=== PATIENT | female | born 1975 | race Hispanic/Latino ===

== ENCOUNTER 2018-03-03 09:19 | Emergency (ER) | payer BC ==
--- OUTSIDE RECORDS SUMMARY | 2018-03-03 09:22 | XMS REPORT ---
:1975 Author Organization [employer] Care Team Providers Name Role Phone Au, Na Provider Role Unavailable Allergies, Adverse Reactions, Alerts Substance Reaction Event Type Rocephin Info Not Available Drug Allergy Problems Problem Type Condition Code Onset Dates Condition Status Problem Elevated blood pressure reading R03.0 Active without diagnosis of hypertension Problem Prediabetes R73.03 Active Problem Allergic rhinitis J30.9 Active Problem Upper respiratory tract infection, J06.9 Active unspecified type Problem Encounter for screening mammogram Z12.31 Active for breast cancer Problem Cough R05 Active Problem Pelvic pain R10.2 Active Problem Increased urinary frequency R35.0 Active Problem Encounter for gynecological Z01.419 Active examination without abnormal finding Problem Well woman exam with routine Z01.419 Active gynecological exam Assessment Vitamin D deficiency E55.9 Active Assessment Prediabetes R73.03 Active Assessment Seasonal allergic rhinitis, J30.2 Active unspecified trigger Problem Fatigue R53.83 Active Problem Vitamin D deficiency E55.9 Active Assessment Migraine, unspecified, not G43.901 Active intractable, with status migrainosus Problem Migraine, unspecified, not G43.901 Active intractable, with status migrainosus Problem Morbid (severe) obesity due to E66.01 Active excess calories Medications Medication Code Code Instructions Start End Status Dosage System Date Date Omeprazole [facility] 17066908399 20 MG Orally Active 1 capsule Once a day Lisinopril [facility] 55655537629 5 MG Active 1 EACH ONCE A DAY ORALLY Tradjenta ND 13494928765 5 MG Orally Once Active 1 tablet a day Imitrex ND 48459360516 25 MG Orally November 22, Active 1 tablet twice a day 2017 as needed Potassium ND 55500118125 20 MEQ Orally Active 1 tablet Chloride Once a day with food Results No Known Results Summary Purpose [employer] Submission
--- OUTSIDE RECORDS SUMMARY | 2018-03-03 09:22 | XMS REPORT ---
:1975 Author Organization [employer] Care Team Providers Name Role Phone Bashir Castellanos Provider Role Unavailable Allergies, Adverse Reactions, Alerts Substance Reaction Event Type Rocephin Info Not Available Drug Allergy Problems Problem Type Condition Code Onset Dates Condition Status Problem Elevated blood pressure reading R03.0 Active without diagnosis of hypertension Problem Morbid (severe) obesity due to E66.01 Active excess calories Problem Migraine, unspecified, not G43.901 Active intractable, with status migrainosus Problem Well woman exam with routine Z01.419 Active gynecological exam Problem Encounter for screening mammogram Z12.31 Active for breast cancer Problem Pelvic pain R10.2 Active Problem Prediabetes R73.03 Active Problem Allergic rhinitis J30.9 Active Problem Encounter for gynecological Z01.419 Active examination without abnormal finding Problem Increased urinary frequency R35.0 Active Assessment Morbid (severe) obesity due to E66.01 Active excess calories Assessment Encounter for gynecological Z01.419 Active examination without abnormal finding Assessment Well woman exam with routine Z01.419 Active gynecological exam Assessment Pelvic pain R10.2 Active Problem Fatigue R53.83 Active Assessment Encounter for screening mammogram Z12.31 Active for breast cancer Problem Vitamin D deficiency E55.9 Active Medications Medication Code Code Instructions Start End Status Dosage System Date Date Lisinopril [facility] 96873250823 5 MG Orally Once Active 1 tablet a day Tradjenta ND 08804914557 5 MG Orally Once Active 1 tablet a day Potassium ND 79159625690 20 MEQ Orally Active 1 tablet Chloride Once a day with food Omeprazole ND 91389047049 20 MG Orally Active 1 capsule Once a day Results Name Result Date Reference Range Unit Abnormality Flag URINALYSIS AUTO W/O SCOPE (88730) ----NIT Neg [id number] ----URO 0.2 [id number] ----PROTEIN Neg [id number] ----pH 6.5 20170830 ----BLO Neg [id number] ----GLUCOSE Neg [id number] ----GARCIA Neg [id number] ----BILIRUBIN Neg [id number] ----KETONES Neg [id number] ----SPECIFIC GRAVITY 1.020 20170830 Summary Purpose eClinicalWorks Submission
--- OUTSIDE RECORDS SUMMARY | 2018-03-03 09:22 | XMS REPORT ---
:1975 Author Organization [employer] Care Team Providers Name Role Phone Roe, Na Provider Role Unavailable Allergies, Adverse Reactions, Alerts Substance Reaction Event Type Rocephin Info Not Available Drug Allergy Problems Problem Type Condition Code Onset Dates Condition Status Problem Prediabetes R73.03 Active Problem Encounter for gynecological Z01.419 Active examination without abnormal finding Problem Pelvic pain R10.2 Active Problem Alkaline phosphatase elevation R74.8 Active Assessment Abscess L02.91 Active Problem Seasonal allergic rhinitis, J30.2 Active unspecified trigger Assessment Vitamin D deficiency E55.9 Active Assessment Seasonal allergic rhinitis, J30.2 Active unspecified trigger Problem Abscess L02.91 Active Problem Well woman exam with routine Z01.419 Active gynecological exam Problem Encounter for screening mammogram Z12.31 Active for breast cancer Problem Upper respiratory tract infection, J06.9 Active unspecified type Problem Cough R05 Active Problem Elevated blood pressure reading R03.0 Active without diagnosis of hypertension Assessment Prediabetes R73.03 Active Assessment Migraine, unspecified, not G43.901 Active intractable, with status migrainosus Problem Vitamin D deficiency E55.9 Active Problem Migraine, unspecified, not G43.901 Active intractable, with status migrainosus Problem Allergic rhinitis J30.9 Active Problem Morbid (severe) obesity due to E66.01 Active excess calories Assessment Alkaline phosphatase elevation R74.8 Active Problem Fatigue R53.83 Active Problem Increased urinary frequency R35.0 Active Medications Medication Code Code Instructions Start End Status Dosage System Date Date Bactrim DS ND 69371293777 800-160 MG Dec 23, Active 1 tablet Orally Twice a 2018 day Imitrex ND 44130903236 25 MG Orally Active 1 tablet twice a day as needed Lisinopril ND 39244432628 5 MG Active 1 EACH ONCE A DAY ORALLY Potassium ND 91322564777 20 MEQ Orally Active 1 tablet Chloride Once a day with food Tradjenta ND 02631367728 5 MG Orally Once Active 1 tablet a day Omeprazole ND 45903431282 20 MG Orally Active 1 capsule Once a day Results No Known Results Summary Purpose eClinicalWorks Submission
--- OUTSIDE RECORDS SUMMARY | 2018-03-03 09:22 | XMS REPORT ---
[...] with routine Z01.419 Active gynecological exam Problem Fatigue R53.83 Active Problem Vitamin D deficiency E55.9 Active Assessment Cough R05 Active Problem Migraine, unspecified, not G43.901 Active intractable, with status migrainosus Assessment Upper respiratory tract infection, J06.9 Active unspecified type Problem Morbid (severe) obesity due to E66.01 Active excess calories Medications Medication Code Code Instructions Start End Status Dosage System Date Date Cheratussin AC [facility] 88033236737 100-10 MG/5ML October 11October Active 5 ml to Orally at hs prn 2017 19, 10ml cough 2017 Tradjenta ND 00395409547 5 MG Orally Once Active 1 tablet a day Lisinopril ND 80284666505 5 MG Orally Once Active 1 tablet a day Omeprazole ND 67035754739 20 MG Orally Active 1 capsule Once a day Potassium ND 93895736901 20 MEQ Orally Active 1 tablet Chloride Once a day with food Zithromax [facility]-[place] ND 92508994107 250 MG Orally October 11September Active 2 tablets Once a day 2018 24, on the 2018 first day, then 1 tablet daily for 4 days Results No Known Results Summary Purpose eClinicalWorks Submission
--- OUTSIDE RECORDS SUMMARY | 2018-03-03 09:22 | XMS REPORT ---
[...] Problem Increased urinary frequency R35.0 Active Assessment Hyponatremia E87.1 Active Assessment Increased urinary frequency R35.0 Active Assessment Low vitamin D level R79.89 Active Assessment Allergic rhinitis J30.9 Active Assessment Migraine, unspecified, not G43.901 Active intractable, with status migrainosus Assessment Prediabetes R73.03 Active Problem Fatigue R53.83 Active Assessment Fatigue R53.83 Active Problem Vitamin D deficiency E55.9 Active Medications Medication Code Code Instructions Start End Status Dosage System Date Date Omeprazole ND 84907020519 20 MG Orally Active 1 capsule Once a day Lisinopril ND 22436936672 5 MG Orally Once Active 1 tablet a day Imitrex ND 29889699421 50 MG Orally August 30, Active 1 tablet daily 2017 as needed and may repeat one dose in 2 hours ( max of 200mg daily) Metformin HCl ND 96595795191 500 MG Orally August 30, Active 1 tablet Once a day 2017 with a meal Potassium ND 41922053401 20 MEQ Orally Active 1 tablet Chloride Once a day with food Tradjenta ND 01408932608 5 MG Orally Once Active 1 tablet a day Montelukast ND 95300274671 10 MG Orally Active 1 tablet Sodium Once a day in the evening Results No Known Results Summary Purpose eClinicalWorks Submission
[2018-03-03 10:28] LABS: Absolute Lymphocytes (CBC) 4.3 K/uL (0.7-4.9); Absolute Monocytes 0.8 K/uL (0.1-1.3); Absolute Neutrophil 6.6 K/uL (1.8-8.0); Basophils % 0.6 % (0-1.3); Eosinophils % 1.2 % (0-4.4); Hematocrit 44.1 % (36.0-45.0); Lymphocytes % 36.2 % (15.3-44.8); MCH 28.2 pg (27.0-35.0); MCV 84.4 fL (80-100); MPV 9.7 fL (7.6-11.3); Monocytes % 6.4 % (3.3-12.3); RBC Red Blood Cell Count 5.23 M/uL (3.86-4.86)
[2018-03-03 10:34] LABS: Protime INR 1.03
--- NOTE | 2018-03-03 10:34 | RAD REPORT ---
EXAM DESCRIPTION: CT - Ct Stroke Brain Wo Cont - 03/03/2018 10:25 am CLINICAL HISTORY: Blurred vision and dizziness COMPARISON: None. TECHNIQUE: Computed axial tomography of the head was obtained. IV contrast was not requested. All CT scans are performed using dose optimization technique as appropriate and may include automated exposure control or mA/KV adjustment according to patient size. FINDINGS: An intracranial bleed is not seen . The ventricles are normal in caliber. No extra-axial fluid collection is noted. Fluid within the sinuses/ mastoids is not seen. IMPRESSION: No acute intracranial abnormality is seen. If patient's symptoms persist MRI of the bra in would be recommended. Exam discussed with Javier in the Emergency Room 10:27 a.m. March 03, 2018
[2018-03-03 10:51] LABS: ALT/SGPT 35 U/L (12-78); AST/SGOT 23 U/L (15-37); Albumin 3.9 g/dL (3.4-5.0); Alkaline Phosphatase 165 U/L (45-117); BUN Blood Urea Nitrogen 8 mg/dL (7-18); Bicarbonate 29 mmol/L (21-32); Bilirubin Direct < 0.1 mg/dL (0-0.2); Bilirubin Total 0.5 mg/dL (0.2-1.0); Glucose Level 101 mg/dL (74-106); Lipase 158 U/L (73-393); Magnesium 2.3 mg/dL (1.8-2.4); Potassium 3.5 mmol/L (3.5-5.1); Protein, Total 8.7 g/dL (6.4-8.2); Sodium Level 135 mmol/L (136-145); Troponin (Emerg Dept Use Only) < 0.02 ng/mL (0.0-0.045)
[2018-03-03] MEDS ORDERED: ONDANSETRON 4 MG/2 ML VIAL ONE (10:51)
[2018-03-03 10:58] LABS: Urine Blood NEGATIVE (NEG); Urine Glucose NEGATIVE (NEG); Urine Protein 1+ (NEG); Urine Specific Gravity 1.025 (1.005-1.030)
--- NOTE | 2018-03-03 11:35 | RAD REPORT ---
EXAM DESCRIPTION: Thomas Single View03/03/2018 10:37 am CLINICAL HISTORY: Chest pain COMPARISON: 2014 FINDINGS: The lungs appear clear of acute infiltrate. The heart is borderline enlarged IMPRESSION: No acute abnormalities displayed
[2018-03-03] MEDS ORDERED: ACETAMINOPHEN 325 MG TABLET ONE (12:00)
--- NOTE | 2018-03-03 12:21 | RAD REPORT ---
EXAM DESCRIPTION: US - CP - 03/03/2018 11:59 am CLINICAL HISTORY: Dizziness, syncope COMPARISON: None. TECHNIQUE: Real-time sonographic evaluation of both carotid systems was performed. Epstein scale and Do ppler interrogation were performed with waveform tracing bilaterally. FINDINGS: Normal high resistance waveforms are noted in both external carotid arteries. The common c arotid arteries and internal carotid arteries show normal low resistance waveforms. No significant plaque formation is seen. Peak systolic and end diastolic velocity values and the ICA/ CCA ratios are in the non-hemodynamically significant range. Antegrade flow seen in both vertebral arteries. Velocity values and ratios were recorded and are retained in the patient's imaging records. A few small benign appearing cervical lymph nodes seen. IMPRESSION: No significant atherosclerotic changes noted. No evidence of a hemodynamically significant stenosis.
--- NOTE | 2018-03-03 13:36 | RAD REPORT ---
EXAM DESCRIPTION: MRI - Brain W/Wo Cont - 03/03/2018 1:03 pm CLINICAL HISTORY: Blurred vision and numbness COMPARISON: March 03, [address] TECHNIQUE: Axial, sagittal, and coronal magnetic resonance images of the brain were obtained. 20 cc MultiHance administered intravenously FINDINGS: No abnormal signal is present within the brain. Diffusion-weighted/ADC mapping does not reveal evidence of acute infarction. The ventricles are normal caliber. An extra-axial fluid collection is not present. No abnormal enhancement displayed The sinuses and mastoids are clear. IMPRESSION: Unremarkable exam
--- NOTE | 2018-03-03 13:37 | RAD REPORT ---
EXAM DESCRIPTION: MRI - MRA Head Wo Cont - 03/03/2018 1:03 pm CLINICAL HISTORY: Blurred vision and numbness COMPARISON: None. TECHNIQUE: Magnetic resonance angiogram of the head was performed. 3D MIPS reconstruction performed FINDINGS: The visualized anterior cerebral, middle cerebral, posterior cerebral, basilar and distal internal carotid arteries do not demonstrate a significant stenosis. An aneurysm is not seen IMPRESSION: Unremarkable MRA head
--- NOTE | 2018-03-03 13:39 | RAD REPORT ---
EXAM DESCRIPTION: MRI - MRA Neck W/Wo Cont - 03/03/2018 1:02 pm CLINICAL HISTORY: Blurred vision and numbness COMPARISON: None. TECHNIQUE: Magnetic resonance angiogram of the neck was performed. 20 cc MultiHance administered int ravenously. . 3D MIPS reconstruction performed. FINDINGS: The common carotid, internal carotid and external carotid arteries do not demonstrate a si gnificant stenosis. An aneurysm is not seen. Bovine aorta The left vertebral artery is little bit more dominant than the right. No abnormality displayed. IMPRESSION: No significant abnormality is seen
--- NOTE | 2018-03-03 15:27 | EDPHYS ---
Physician Documentation [facility] Unit Name: Kimmie Allen Age: 42 yrs Sex: Female : 1975 Arrival Date: 03/03/2018 Time: 09:24 Bed 17 Private MD: April Au ED Physician Telly Borrego HPI: 03/03 10:20 This 42 yrs old Female presents to ER via Ambulatory with complaints of pm1 Dizziness, Blurred Vision. 10:20 The patient presents with dizziness. Onset: The symptoms/episode began/occurred this pm1 morning, at 08:00. Context: occurred at work, occurred while the patient was working, just prior to the episode the patient experienced no apparent symptoms. Modifying factors: The symptoms are alleviated by nothing, the symptoms are aggravated by nothing. Associated signs and symptoms: Pertinent positives: blurred vision, Pertinent negatives: chest pain, nausea, numbness, shortness of breath, tingling. Severity of symptoms: in the emergency department the symptoms have resolved. Patient's baseline: Neuro: alert and fully oriented, Motor: no deficits, Ambulation: walks without assistance, Speech: normal. The patient has not experienced similar symptoms in the past. The patient has not recently seen a physician, the patient's primary care provider is Dr. Au. patient at work and had an episode of blurry vision to the medial portion of both eyes with the peripheral portions normal. Blurry vision has resolved and patient attributes dizziness to blurred vision. No focal weakness present. . 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 - Social history:: Smoking status: Patient/guardian denies using tobacco. - Ebola Screening: : Patient negative for fever greater than or equal to 101.5 degrees Fahrenheit, and additional compatible Ebola Virus Disease symptoms Patient denies exposure to infectious person Patient denies travel to an Ebola-affected area in the 21 days before illness onset No symptoms or risks identified at this time. ROS: 10:20 Constitutional: Negative for fever, chills, and weight loss, ENT: Negative for injury, pm1 pain, and discharge. 10:20 Neck: Negative for injury, pain, and swelling, Cardiovascular: Negative for chest pain, palpitations, and edema, Respiratory: Negative for shortness of breath, cough, wheezing, and pleuritic chest pain, Abdomen/GI: Negative for abdominal pain, nausea, vomiting, diarrhea, and constipation, Back: Negative for injury and pain, : Negative for injury, bleeding, discharge, and swelling, MS/Extremity: Negative for injury and deformity, Skin: Negative for injury, rash, and discoloration. 10:20 Eyes: Positive for blurry vision, Negative for discharge, pain, vision loss. 10:20 Neuro: Positive for dizziness, Negative for altered mental status, numbness, tingling, weakness. Exam: 10:20 Constitutional: This is a well developed, well nourished patient who is awake, alert, pm1 and in no acute distress. Head/Face: Normocephalic, atraumatic. Eyes: Pupils equal round and reactive to light, extra-ocular motions intact. Lids and lashes normal. Conjunctiva and sclera are non-icteric and not injected. Cornea within normal limits. Periorbital areas with no swelling, redness, or edema. ENT: Nares patent. No nasal discharge, no septal abnormalities noted. Tympanic membranes are normal and external auditory canals are clear. Oropharynx with no redness, swelling, or masses, exudates, or evidence of obstruction, uvula midline. Mucous membranes moist. Neck: Trachea midline, no thyromegaly or masses palpated, and no cervical lymphadenopathy. Supple, full range of motion without nuchal rigidity, or vertebral point tenderness. No Meningismus. Chest/axilla: Normal chest wall appearance and motion. Nontender with no deformity. No lesions are appreciated. Cardiovascular: Regular rate and rhythm with a normal S1 and S2. No gallops, murmurs, or rubs. Normal PMI, no JVD. No pulse deficits. Respiratory: Lungs have equal breath sounds bilaterally, clear to auscultation and percussion. No rales, rhonchi or wheezes noted. No increased work of breathing, no retractions or nasal flaring. Abdomen/GI: Soft, non-tender, with normal bowel sounds. No distension or tympany. No guarding or rebound. No evidence of tenderness throughout. Back: No spinal tenderness. No costovertebral tenderness. Full range of motion. Skin: Warm, dry with normal turgor. Normal color with no rashes, no lesions, and no evidence of cellulitis. MS/ Extremity: Pulses equal, no cyanosis. Neurovascular intact. Full, normal range of motion. 10:20 Neuro: Orientation: is normal, Mentation: is normal, Cranial nerves: CN II- XII are normal as tested, Cerebellar function: normal finger to nose testing, heel to paula testing is normal, Motor: moves all fours, strength is normal, strength is 5/5 in all extremities, Sensation: is normal, no obvious gross deficits, Gait: is steady, at a normal pace, without difficulty, Abnormal movements: there are no abnormal movements. Vital Signs: 09:53 BP 136 / 81; Pulse 78; Resp 16; Temp 98.1; Pulse Ox 98% on R/A; Weight 106.59 kg; aj Height 5 ft. 1 in. (154.94 cm); Pain 5/10; 11:04 BP 105 / 67; Pulse 73; Resp 16; Pulse Ox 99% on R/A; Pain 6/10; em 12:00 BP 118 / 71; Pulse 68; Resp 18; Pulse Ox 99% on R/A; em 13:00 BP 133 / 80; Pulse 64; Resp 18; Pulse Ox 99% on R/A; Pain 2/10; em 14:00 BP 91 / 55; Pulse 67; Resp 15; Pulse Ox 98% on R/A; mh5 15:24 BP 104 / 72; Pulse 67; Resp 17; Pulse Ox 99% on R/A; mh5 09:53 Body Mass Index 44.40 (106.59 kg, 154.94 cm) NIH Stroke Scale Scores: 10:10 NIHSS Score: 0 em 10:15 NIHSS Score: 0 pm1 MDM: 10:04 Patient medically screened. pm1 10:20 ED course: Patient not a candidate for TPA because NIHSS = 0 and patient is currently pm1 without any symptoms. 10:27 Data reviewed: vital signs. Data interpreted: Pulse oximetry: on room air is 98 %. pm1 Interpretation: normal. 15:25 Counseling: I had a detailed discussion with the patient and/or guardian regarding: the pm1 historical points, exam findings, and any diagnostic results supporting the discharge/admit diagnosis, lab results, radiology results, the need for outpatient follow up, to return to the emergency department if symptoms worsen or persist or if there are any questions or concerns that arise at home. 03/03 10:14 Order name: Magnesium; Complete Time: 11:05 pm1 03/03 10:14 Order name: Lipase; Complete Time: 11: pm1 03/03 10:14 Order name: Hepatic Function; Complete Time: 11:05 pm1 03/03 10:14 Order name: Troponin (emerg Dept Use Only); Complete Time: 11:05 pm1 03/03 10:14 Order name: Basic Metabolic Panel; Complete Time: 11:05 pm1 03/03 10:14 Order name: CBC with Diff; Complete Time: 10:29 pm1 03/03 10:14 Order name: Protime (+inr); Complete Time: 11: pm1 03/03 10:14 Order name: Ptt, Activated; Complete Time: 11:05 pm1 03/03 10:14 Order name: CT Stroke Brain w/o Contrast; Complete Time: 11:05 pm1 03/03 10:14 Order name: Stroke CXR 1 View; Complete Time: 12:13 pm1 03/03 10:22 Order name: Urine Dipstick--Ancillary (enter results); Complete Time: 11:05 eb 03/03 10:22 Order name: Urine --Ancillary (enter results); Complete Time: 11:05 eb 03/03 10:43 Order name: Carotid Artery Bilateral US; Complete Time: 12:24 pm1 03/03 10:14 Order name: EKG; Complete Time: 10:14 pm1 03/03 10:14 Order name: Accucheck; Complete Time: 10:20 pm1 03/03 10:14 Order name: Cardiac monitoring; Complete Time: 10:20 pm1 03/03 10:14 Order name: EKG - Nurse/Tech; Complete Time: 10:20 pm1 03/03 10:14 Order name: IV Saline Lock; Complete Time: 10:20 pm1 03/03 10:14 Order name: Labs collected and sent; Complete Time: 10:20 pm1 03/03 10:14 Order name: NPO; Complete Time: 10:20 pm1 03/03 10:14 Order name: O2 Per Protocol; Complete Time: 10:21 pm1 03/03 10:14 Order name: O2 Sat Monitoring; Complete Time: 10:21 pm1 03/03 10:14 Order name: Stroke Swallow Screen; Complete Time: 10:58 pm1 03/03 12:24 Order name: MRA Head Wo Cont; Complete Time: 13:38 EDMS 03/03 12:25 Order name: Brain W/Wo Cont; Complete Time: 13:38 EDMS 03/03 12:25 Order name: MRA Neck W/Wo Cont; Complete Time: 14:00 EDMS Administered Medications: 10:42 Drug: Zofran 4 mg Route: IVP; Site: left antecubital; ss 11:30 Follow up: Response: No adverse reaction; Nausea is decreased em 11:50 Drug: Tylenol 650 mg Route: PO; em 13:52 Follow up: Response: No adverse reaction; Pain is decreased em Point of Care Testing: Blood Glucose: 10:21 Blood Glucose: 90 mg/dL; em Ranges: Critical Glucose Levels:Adult <50 mg/dl or >400 mg/dl <40 mg/dl or >180 mg/dl Disposition: 03/03/18 15:26 Discharged to Home. Impression: Dizziness and giddiness. - Condition is Stable. - Discharge Instructions: Dizziness. - Work release form, Medication Reconciliation Form, Thank You Letter, Antibiotic Education, Prescription Opioid Use form. - Follow up: Emergency Department; When: As needed; Reason: Worsening of condition. Follow up: April Au MD; When: 2 - 3 days; Reason: Recheck today's complaints, Continuance of care, Re-evaluation by your physician. - Problem is new. - Symptoms have improved. NIH Stroke Scale - NIH Stroke Score Date: 03/03/2018 Time: 10:10 Total Score = 0 1a. Level of Consciousness (LOC) - 0(Alert) 1b. Level of Consciousness (LOC) (Year \T\ Age) - 0(Both) 1c. LOC Commands (Open \T\ Closes Eyes/Road Cleaner) - 0(Both) 2. Best Gaze (Lateral Gaze Paresis) - 0(Normal) 3. Visual Field Loss - 0(No visual loss) 4. Facial Palsy - 0(Normal) 5a. Left Arm: Motor (10-second hold) - 0(No drift) 5b. Right Arm: Motor (10-second hold) - 0(No drift) 6a. Left Leg: Motor (5-second hold - always test supine) - 0(No drift) 6b. Right Leg: Motor (5-second hold - always test supine) - 0(No drift) 7. Limb Ataxia (finger/nose \T\ heel/paula - test with eyes open) - 0(Absent) 8. Sensory Loss (pinprick arms/legs/face) - 0(Normal) 9. Best Language: Aphasia (description/naming/reading) - 0(No aphasia) 10. Dysarthria (speech clarity - read or repeat words) - 0(Normal) 11. Extinction and Inattention (visual/tactile/auditory/spatial/personal) - 0(No abnormality) Initials: NIH Stroke Scale - NIH Stroke Score Date: 03/03/2018 Time: 10:15 Total Score = 0 1a. Level of Consciousness (LOC) - 0(Alert) 1b. Level of Consciousness (LOC) (Year \T\ Age) - 0(Both) 1c. LOC Commands (Open \T\ Closes Eyes/Road Cleaner) - 0(Both) 2. Best Gaze (Lateral Gaze Paresis) - 0(Normal) 3. Visual Field Loss - 0(No visual loss) 4. Facial Palsy - 0(Normal) 5a. Left Arm: Motor (10-second hold) - 0(No drift) 5b. Right Arm: Motor (10-second hold) - 0(No drift) 6a. Left Leg: Motor (5-second hold - always test supine) - 0(No drift) 6b. Right Leg: Motor (5-second hold - always test supine) - 0(No drift) 7. Limb Ataxia (finger/nose \T\ heel/paula - test with eyes open) - 0(Absent) 8. Sensory Loss (pinprick arms/legs/face) - 0(Normal) 9. Best Language: Aphasia (description/naming/reading) - 0(No aphasia) 10. Dysarthria (speech clarity - read or repeat words) - 0(Normal) 11. Extinction and Inattention (visual/tactile/auditory/spatial/personal) - 0(No abnormality) Initials: pm1 Addendum: 03/06/2018 06:47 Co-signature as Attending Physician, Telly Borrego MD I agree with the [facility] assessment and plan of care. Signatures: Dispatcher [employer] EDID Carolyn Sagastume, RN Telly Mandujano MD MD cha Munoz, Jax, APPRENTICE FUNERAL DIRECTOR APPRENTICE FUNERAL DIRECTOR em Isabelle Willis RN RN ss Marinas, Patrick, BOOK SHELVER BOOK SHELVER pm1 Corrections: (The following items were deleted from the chart) 03/03 12:24 10:36 Stroke Protocol ordered. [facility] 16:06 15:26 03/03/2018 15:26 Discharged to Home. Impression: Dizziness and giddiness. em Condition is Stable. Forms are Work release form, Medication Reconciliation Form, Thank You Letter, Antibiotic Education, Prescription Opioid Use. Follow up: Emergency Department; When: As needed; Reason: Worsening of condition. Follow up: April Au; When: 2 - 3 days; Reason: Recheck today's complaints, Continuance of care, Re-evaluation by your physician. Problem is new. Symptoms have improved. pm1
--- NOTE | 2018-03-03 15:27 | ER ---
Nurse's Notes [facility] Name: Kimmie Allen Age: 42 yrs Sex: Female : 1975 Arrival Date: 03/03/2018 Time: 09:24 Bed 17 Private MD: April Au Diagnosis: Dizziness and giddiness Presentation: 03/03 09:51 Presenting complaint: Patient states: Reports episode of blurred vision, headache, aj indigestion, and left shoulder pain that started at 0800 this AM after eating breakfast. Reports blurred vision has improved. Transition of care: patient was not received from another setting of care. Onset of symptoms was March 03, 2018 at 08:00. Risk Assessment: Do you want to hurt yourself or someone else? Patient reports no desire to harm self or others. Initial Sepsis Screen: Does the patient meet any 2 criteria? No. Patient's initial sepsis screen is negative. Does the patient have a suspected source of infection? No. Patient's initial sepsis screen is negative. Care prior to arrival: None. 09:51 Method Of Arrival: Ambulatory 09:51 Acuity: JOSHUA 3 aj 10:15 No acute neurological deficit is noted. Pre-hospital glucose is not applicable to this em patient. Triage Assessment: 09:53 General: Appears in no apparent distress. comfortable, obese, Behavior is calm, aj cooperative, appropriate for age. Pain: Complains of pain in face, scalp and left bicep. Neuro: Level of Consciousness is awake, alert, obeys commands, Oriented to person, place, time, situation, Appropriate for age Pulp Roller are equal bilaterally Moves all extremities. Full function Gait is steady, Speech is normal, Facial symmetry appears normal, Reports dizziness, headache. Respiratory: Airway is patent Respiratory effort is even, unlabored, Respiratory pattern is regular, symmetrical. Derm: Skin is intact, is healthy with good turgor, Skin is pink, warm \T\ dry. normal. 10:15 The onset of the patients symptoms was March 03, 2018 at 08:00. 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: 09:53 LMP 02/06/2018 aj Stroke Activation: Physician: Stroke Attending; Name: ; Notified At: ; Arrived At: Physician: Chief Stroke Resident; Name: ; Notified At: ; Arrived At: Physician: Stroke Resident; Name: ; Notified At: ; Arrived At: Physician: ED Attending; Name: Elmo; Notified At: 10:15; Arrived At: Physician: ED Resident; Name: ; Notified At: ; Arrived At: Historical: - Allergies: :53 Rocephin; aj - Home Meds: :53 Deonna 180 mg Oral tab 1 tab once daily [Active]; Lisinopril Oral [Active]; Omeprazole aj Oral [Active]; - PMHx: 09:53 Diabetes - NIDDM; Hypertension; GERD; aj - PSHx: 09:53 Tubal ligation; aj - Immunization history:: Adult Immunizations up to date. - Social history:: Smoking status: Patient/guardian denies using tobacco. - Ebola Screening: : Patient negative for fever greater than or equal to 101.5 degrees Fahrenheit, and additional compatible Ebola Virus Disease symptoms Patient denies exposure to infectious person Patient denies travel to an Ebola-affected area in the 21 days before illness onset No symptoms or risks identified at this time. Screenin:10 Abuse screen: Denies threats or abuse. Nutritional screening: No deficits noted. em Tuberculosis screening: No symptoms or risk factors identified. Fall Risk Gait- Impaired (20 pts.). Assessment: 10:10 General: Appears in no apparent distress. comfortable, Behavior is calm, cooperative. em Pain: Complains of pain in anterior aspect of left shoulder Pain currently is 5 out of 10 on a pain scale. Neuro: Level of Consciousness is awake, alert, obeys commands, Oriented to person, place, time, situation, Pulp Roller are equal bilaterally Moves all extremities. Gait is unsteady, Speech is normal, Facial symmetry appears normal, Pupils are PERRLA, Intact Reports blurred vision dizziness, headache in right in left. Cardiovascular: Capillary refill < 3 seconds Patient's skin is warm and dry. Respiratory: Airway is patent Respiratory effort is even, unlabored, Respiratory pattern is regular, symmetrical. GI: Reports nausea, Patient currently denies abdominal pain. : Urine is clear. EENT: Oral mucosa is moist. Throat is clear is pink. Derm: Skin is intact, Skin is pink, warm \T\ dry. Musculoskeletal: Range of motion: intact in all extremities. 10:15 General: The previous assessment is accurate, call light remains within reach. ss 10:15 T-PA (Activase) Screening: Contraindications: Rapidly improving condition or minor em deficit: Yes. 10:37 Patient has been NPO before screening. The patient is alert, and able to follow em commands. The patient does not exhibit slurred or garbled speech. The patient is not exhibiting difficulty speaking. The patient does not exhibit difficulty understanding words. The patient is able to swallow own secretions with no drooling or need for suction. Patient tolerated one teaspoon of water. No drooling, immediate coughing, gurgling, or clearing of the throat was noted. The patient tolerated 90mL of water. No drooling, immediate coughing, gurgling, or clearing of the throat was noted. The patient passed the bedside swallow screening. Oral medications may be given as ordered. Contact Physician for further diet orders. Provider notified of bedside swallow screening results: Javier Castellanos CYCLE REPAIRER. 11:04 Reassessment: Patient appears in no apparent distress at this time. Patient and/or em family updated on plan of care and expected duration. Pain level reassessed. Patient is alert, oriented x 3, equal unlabored respirations, skin warm/dry/pink. rates headache 6/10, provider notified Patient states feeling better. Patient states symptoms have improved. 12:25 Reassessment: Patient appears in no apparent distress at this time. pt being wheeled to em CT via wheelchair. 12:58 Reassessment: Patient appears in no apparent distress at this time. Patient and/or em family updated on plan of care and expected duration. Pain level reassessed. Patient is alert, oriented x 3, equal unlabored respirations, skin warm/dry/pink. rates headache 2/10 Patient states feeling better. Patient states symptoms have improved. 13:40 Reassessment: Patient appears in no apparent distress at this time. Patient and/or em family updated on plan of care and expected duration. Pain level reassessed. Patient is alert, oriented x 3, equal unlabored respirations, skin warm/dry/pink. 14:15 Reassessment: Patient appears in no apparent distress at this time. Patient and/or em family updated on plan of care and expected duration. Pain level reassessed. Patient is alert, oriented x 3, equal unlabored respirations, skin warm/dry/pink. rates headache 0/10 Patient denies pain at this time. Patient states feeling better. Patient states symptoms have improved. 15:24 Reassessment: Patient appears in no apparent distress at this time. Patient and/or em family updated on plan of care and expected duration. Pain level reassessed. Patient is alert, oriented x 3, equal unlabored respirations, skin warm/dry/pink. Vital Signs: 09:53 BP 136 / 81; Pulse 78; Resp 16; Temp 98.1; Pulse Ox 98% on R/A; Weight 106.59 kg; aj Height 5 ft. 1 in. (154.94 cm); Pain 5/10; 11:04 BP 105 / 67; Pulse 73; Resp 16; Pulse Ox 99% on R/A; Pain 6/10; em 12:00 BP 118 / 71; Pulse 68; Resp 18; Pulse Ox 99% on R/A; em 13:00 BP 133 / 80; Pulse 64; Resp 18; Pulse Ox 99% on R/A; Pain 2/10; em 14:00 BP 91 / 55; Pulse 67; Resp 15; Pulse Ox 98% on R/A; mh5 15:24 BP 104 / 72; Pulse 67; Resp 17; Pulse Ox 99% on R/A; mh5 09:53 Body Mass Index 44.40 (106.59 kg, 154.94 cm) aj NIH Stroke Scale Scores: 10:10 NIHSS Score: 0 em 10:15 NIHSS Score: 0 pm1 ED Course: 09:24 Patient arrived in ED. mr 09:24 April uA MD is Private Physician. mr 09:53 Triage completed. aj 09:53 Arm band placed on left wrist. Patient placed in an exam room. aj 09:58 Jax Allen LVN is Primary Nurse. em 10:03 Javier Castellanos NP is PHCP. pm1 10:03 Telly Borrego MD is Attending Physician. pm1 10:10 Patient has correct armband on for positive identification. Placed in gown. Bed in low em position. Call light in reach. Adult w/ patient. 10:15 Initial lab(s) drawn, by me, sent to lab. Inserted saline lock: 22 gauge in left em antecubital area, using aseptic technique. Blood collected. 10:26 CT Stroke Brain w/o Contrast In Process Unspecified. EDMS 10:35 X-ray completed. Portable x-ray completed in exam room. Patient tolerated procedure ag1 well. 10:36 Stroke CXR 1 View In Process Unspecified. EDMS 10:46 EKG done, by zoology technical officer. reviewed by Javier Castellanos NP. tc 12:00 Carotid Artery Bilateral US In Process Unspecified. EDMS 12:10 Patient moved to MRI via wheelchair. ka 13:03 MRA Head Wo Cont In Process Unspecified. EDMS 13:03 Brain W/Wo Cont In Process Unspecified. EDMS 13:03 MRA Neck W/Wo Cont In Process Unspecified. EDMS 13:09 MRI completed. Patient tolerated well. Patient moved back from MRI. ka 15:25 April Au MD is Referral Physician. pm1 16:04 No provider procedures requiring assistance completed. IV discontinued, intact, em bleeding controlled, No redness/swelling at site. Pressure dressing applied. Administered Medications: 10:42 Drug: Zofran 4 mg Route: IVP; Site: left antecubital; ss 11:30 Follow up: Response: No adverse reaction; Nausea is decreased em 11:50 Drug: Tylenol 650 mg Route: PO; em 13:52 Follow up: Response: No adverse reaction; Pain is decreased em Point of Care Testing: Blood Glucose: 10:21 Blood Glucose: 90 mg/dL; em Ranges: Outcome: 15:26 Discharge ordered by MD. pm1 16:04 Discharged to home ambulatory, with family. em 16:04 Condition: good 16:04 Discharge instructions given to patient, family, Instructed on discharge instructions, follow up and referral plans. Demonstrated understanding of instructions, follow-up care. 16:06 Patient left the ED. em NIH Stroke Scale - NIH Stroke Score Date: 03/03/2018 Time: 10:10 Total Score = 0 1a. Level of Consciousness (LOC) - 0(Alert) 1b. Level of Consciousness (LOC) (Year \T\ Age) - 0(Both) 1c. LOC Commands (Open \T\ Closes Eyes/Crm Solution Architect) - 0(Both) 2. Best Gaze (Lateral Gaze Paresis) - 0(Normal) 3. Visual Field Loss - 0(No visual loss) 4. Facial Palsy - 0(Normal) 5a. Left Arm: Motor (10-second hold) - 0(No drift) 5b. Right Arm: Motor (10-second hold) - 0(No drift) 6a. Left Leg: Motor (5-second hold - always test supine) - 0(No drift) 6b. Right Leg: Motor (5-second hold - always test supine) - 0(No drift) 7. Limb Ataxia (finger/nose \T\ heel/paula - test with eyes open) - 0(Absent) 8. Sensory Loss (pinprick arms/legs/face) - 0(Normal) 9. Best Language: Aphasia (description/naming/reading) - 0(No aphasia) 10. Dysarthria (speech clarity - read or repeat words) - 0(Normal) 11. Extinction and Inattention (visual/tactile/auditory/spatial/personal) - 0(No abnormality) Initials: NIH Stroke Scale - NIH Stroke Score Date: 03/03/2018 Time: 10:15 Total Score = 0 1a. Level of Consciousness (LOC) - 0(Alert) 1b. Level of Consciousness (LOC) (Year \T\ Age) - 0(Both) 1c. LOC Commands (Open \T\ Closes Eyes/Crm Solution Architect) - 0(Both) 2. Best Gaze (Lateral Gaze Paresis) - 0(Normal) 3. Visual Field Loss - 0(No visual loss) 4. Facial Palsy - 0(Normal) 5a. Left Arm: Motor (10-second hold) - 0(No drift) 5b. Right Arm: Motor (10-second hold) - 0(No drift) 6a. Left Leg: Motor (5-second hold - always test supine) - 0(No drift) 6b. Right Leg: Motor (5-second hold - always test supine) - 0(No drift) 7. Limb Ataxia (finger/nose \T\ heel/paula - test with eyes open) - 0(Absent) 8. Sensory Loss (pinprick arms/legs/face) - 0(Normal) 9. Best Language: Aphasia (description/naming/reading) - 0(No aphasia) 10. Dysarthria (speech clarity - read or repeat words) - 0(Normal) 11. Extinction and Inattention (visual/tactile/auditory/spatial/personal) - 0(No abnormality) Initials: pm1 Signatures: Dispatcher [employer] Carolyn Conway RN RN aj Rivera, Mary mr Jax Allen, CLAIM APPROVER CLAIM APPROVER Isabelle Doe RN RN ss Susie Martini, quality systems technician EKG Ttc Ric, Makenzie ag1 Etelvina Kahn Patrick, CYCLE REPAIRER CYCLE REPAIRER pm1 [place] [facility]
--- NOTE | 2018-03-03 18:47 | EKG ---
Test Date: 2018-03-03 Test Time: 10:32:43 Roving Technician: ELINOR MEASUREMENT RESULTS: Intervals: Rate: 74 NE: 150 QRSD: 78 QT: 426 QTc: 472 [place]: P: 15 NE: 150 QRS: -13 T: 20 INTERPRETIVE STATEMENTS: Normal sinus rhythm Voltage criteria for left ventricular hypertrophy Abnormal ECG Compared to ECG 06/13/2015 09:44:52 No significant changes Electronically Signed On 03-03-18 18:44:55 ATTENDANT CAMPGROUND by Hardeep Uribe
== END 2018-03-03 16:06 | disposition home or self-care (01) ==
LOC: ER 09:19
DX: R42 Dizziness and giddiness (principal); I10 Essential (primary) hypertension; E11.9 Type 2 diabetes mellitus without complications; K21.9 Gastro-esophageal reflux disease without esophagitis; Z88.3 Allergy status to other anti-infective agents
CPT/HCPCS: 36415; 70450; 70544; 70549; 70553; 71045; 80048; 80076; 81003; 81025; 82962; 83690; 83735; 84484; 85025; 85610; 85730; 93005; 93880; 96374; 99284; A9577; J2405

== ENCOUNTER 2018-09-28 15:43 | Emergency (ER) | payer BC ==
--- NOTE | 2018-09-28 16:10 | RAD REPORT ---
EXAM DESCRIPTION: CT - Head Brain Wo Cont - 09/28/2018 4:03 pm CLINICAL HISTORY: right sided headache Headache, drowsiness COMPARISON: <Comparisons> TECHNIQUE: All CT scans are performed using dose optimization technique as appropriate and may inclu de automated exposure control or mA/KV adjustment according to patient size. FINDINGS: No intracranial hemorrhage, hydrocephalus or extra-axial fluid collection.No areas of brai n edema or evidence of midline shift. The paranasal sinuses and mastoids are clear. The calvarium is intact. IMPRESSION: No acute intracranial abnormality.
[2018-09-28] MEDS ORDERED: NA CHLORIDE 0.9% 1,000 ML ONE (16:36)
[2018-09-28] MEDS ORDERED: DIPHENHYDRAMINE 50 MG/ML VIAL ONE (16:36)
[2018-09-28] MEDS ORDERED: METOCLOPRAMIDE 10 MG/2mL INJ ONE (16:36)
--- OUTSIDE RECORDS SUMMARY | 2018-09-28 17:13 | XMS REPORT ---
[...] Status Dosage System Date Date Omeprazole ND 84659016776 20 MG Orally Active 1 capsule Once a day Lisinopril ND 36545987825 5 MG Orally Once Active 1 tablet a day Imitrex ND 95402962809 50 MG Orally August 30, Active 1 tablet daily 2017 as needed and may repeat one dose in 2 hours ( max of 200mg daily) Metformin HCl ND 41407221412 500 MG Orally August 30, Active 1 tablet Once a day 2017 with a meal Potassium ND 94808845192 20 MEQ Orally Active 1 tablet Chloride Once a day with food Tradjenta ND 19892700284 5 MG Orally Once Active 1 tablet a day Montelukast ND 95475763103 10 MG Orally Active 1 tablet Sodium Once a day in the evening Results No Known Results Summary Purpose eClinicalWorks Submission
--- OUTSIDE RECORDS SUMMARY | 2018-09-28 17:13 | XMS REPORT ---
[...] End Status Dosage System Date Date Lisinopril [facility] 39732863076 5 MG Orally Once Active 1 tablet a day Tradjenta ND 82793280228 5 MG Orally Once Active 1 tablet a day Potassium ND 76031365746 20 MEQ Orally Active 1 tablet Chloride Once a day with food Omeprazole ND 28517624805 20 MG Orally Active 1 capsule Once a day Results Name Result Date Reference Range Unit Abnormality Flag URINALYSIS AUTO W/O SCOPE (54184) ----NIT Neg [id number] ----URO 0.2 [id number] ----PROTEIN Neg [id number] ----pH 6.5 20170830 ----BLO Neg [id number] ----GLUCOSE Neg [id number] ----GARCIA Neg [id number] ----BILIRUBIN Neg [id number] ----KETONES Neg [id number] ----SPECIFIC GRAVITY 1.020 [id number] Summary Purpose eClinicalWorks Submission
--- OUTSIDE RECORDS SUMMARY | 2018-09-28 17:13 | XMS REPORT ---
[...] End Status Dosage System Date Date Omeprazole [facility] 92415371741 20 MG Orally Active 1 capsule Once a day Lisinopril [facility] 11295869140 5 MG Active 1 EACH ONCE A DAY ORALLY Tradjenta ND 01620746710 5 MG Orally Once Active 1 tablet a day Imitrex ND 71499221207 25 MG Orally November 22, Active 1 tablet twice a day 2017 as needed Potassium ND 55658992066 20 MEQ Orally Active 1 tablet Chloride Once a day with food Results No Known Results Summary Purpose eClinicalWorks Submission
--- OUTSIDE RECORDS SUMMARY | 2018-09-28 17:13 | XMS REPORT ---
[...] Status Dosage System Date Date Cheratussin AC [facility] 20129824614 100-10 MG/5ML October 11October Active 5 ml to Orally at hs prn 2017 19, 10ml cough 2017 Tradjenta ND 94351504980 5 MG Orally Once Active 1 tablet a day Lisinopril ND 78466117073 5 MG Orally Once Active 1 tablet a day Omeprazole ND 10547547068 20 MG Orally Active 1 capsule Once a day Potassium ND 32840580250 20 MEQ Orally Active 1 tablet Chloride Once a day with food Zithromax Z-[place]ine ND 27764587925 250 MG Orally October 11September Active 2 tablets Once a day 2018 24, on the 2018 first day, then 1 tablet daily for 4 days Results No Known Results Summary Purpose eClinicalWorks Submission
--- OUTSIDE RECORDS SUMMARY | 2018-09-28 17:14 | XMS REPORT ---
:1975 Author Organization eClinicalWorks Care Team Providers Name Role Phone April Au Provider Role Unavailable Allergies, Adverse Reactions, Alerts Substance Reaction Event Type Rocephin Info Not Available Drug Allergy Problems Problem Type Condition Code Onset Dates Condition Status Problem Encounter for gynecological Z01.419 Active examination without abnormal finding Problem Well woman exam with routine Z01.419 Active gynecological exam Problem Pelvic pain R10.2 Active Problem Gastroesophageal reflux disease K21.0 Active with esophagitis Assessment Fever, unspecified fever cause R50.9 Active Problem Alkaline phosphatase elevation R74.8 Active Assessment Pharyngitis, unspecified etiology J02.9 Active Assessment Flu-like symptoms R68.89 Active Problem Constipation, unspecified K59.00 Active constipation type Problem Upper respiratory tract infection, J06.9 Active unspecified type Problem Cough R05 Active Problem Abscess L02.91 Active Problem Seasonal allergic rhinitis, J30.2 Active unspecified trigger Problem Migraine, unspecified, not G43.901 Active intractable, with status migrainosus Problem Morbid (severe) obesity due to E66.01 Active excess calories Problem Elevated blood pressure reading R03.0 Active without diagnosis of hypertension Problem Allergic rhinitis J30.9 Active Problem Increased urinary frequency R35.0 Active Assessment Vitamin D deficiency E55.9 Active Problem Fatigue R53.83 Active Problem Prediabetes R73.03 Active Assessment Body aches R52 Active Problem Vitamin D deficiency E55.9 Active Problem Encounter for screening mammogram Z12.31 Active for breast cancer Medications Medication Code Code Instructions Start End Status Dosage System Date Date Cheratussin AC [facility] 35333839251 100-10 MG/5ML Active 5 ml Orally every 6 hrs Lisinopril [facility] 78135911528 5 Active 1 EACH ONCE A DAY ORALLY Bactrim DS [facility] 25347997599 800-160 MG Active 1 tablet Orally Twice a day Azithromycin ND 18871441740 250 MG Orally June Active 2 tablets Once a day 2018 18, on the 2018 first day, then 1 tablet daily for 4 days [address] [facility] 30893525178 5 MG Active 1 EACH ONCE A DAY ORALLY Omeprazole [facility] 29998982624 20 MG Orally Active 1 capsule Once a day Tradjenta [facility] 03600181088 5 MG Orally Active 1 tablet Once a day Medrol [facility] 55599001688 4 MG Orally June Active as daily [address] [facility] 22870164291 76396 UNIT June Active 1 capsule Orally [address] [facility] 39500618349 25 MG Orally Active 1 tablet twice a day as needed Omeprazole [facility] 37231906074 40 Active 1 EACH DAILY ORALLY Potassium [facility] 00006781560 20 MEQ Orally Active 1 tablet Chloride Once a day with food Results No Known Results Summary Purpose eClinicalWorks Submission
--- OUTSIDE RECORDS SUMMARY | 2018-09-28 17:14 | XMS REPORT ---
[...] Dosage System Date Date Bactrim DS ND 58912375041 800-160 MG Dec 23, Active 1 tablet Orally Twice a 2018 day Imitrex ND 47004565787 25 MG Orally Active 1 tablet twice a day as needed Lisinopril ND 24395729828 5 MG Active 1 EACH ONCE A DAY ORALLY Potassium ND 79193195854 20 MEQ Orally Active 1 tablet Chloride Once a day with food Tradjenta ND 27560006432 5 MG Orally Once Active 1 tablet a day Omeprazole ND 59701631481 20 MG Orally Active 1 capsule Once a day Results No Known Results Summary Purpose eClinicalWorks Submission
--- OUTSIDE RECORDS SUMMARY | 2018-09-28 17:14 | XMS REPORT ---
:1975 Author Organization eClinicalWorks Care Team Providers Name Role Phone Au, Na Provider Role Unavailable Allergies, Adverse Reactions, Alerts Substance Reaction Event Type Rocephin Info Not Available Drug Allergy Problems Problem Type Condition Code Onset Dates Condition Status Assessment Constipation, unspecified K59.00 Active constipation type Assessment Blood tests for routine general Z00.00 Active physical examination Assessment Alkaline phosphatase elevation R74.8 Active Assessment Seasonal allergic rhinitis, J30.2 Active unspecified trigger Problem Prediabetes R73.03 Active Assessment Vitamin D deficiency E55.9 Active Problem Encounter for screening mammogram Z12.31 Active for breast cancer Assessment Prediabetes R73.03 Active Problem Encounter for gynecological Z01.419 Active examination without abnormal finding Problem Well woman exam with routine Z01.419 Active gynecological exam Problem Pelvic pain R10.2 Active Problem Gastroesophageal reflux disease K21.0 Active with esophagitis Problem Alkaline phosphatase elevation R74.8 Active Assessment Migraine, unspecified, not G43.901 Active intractable, with status migrainosus Assessment Gastroesophageal reflux disease K21.0 Active with esophagitis Problem Constipation, unspecified K59.00 Active constipation type Assessment Screening for cardiovascular Z13.6 Active condition Problem Upper respiratory tract infection, J06.9 Active [...] Problem Increased urinary frequency R35.0 Active Problem Fatigue R53.83 Active Problem Vitamin D deficiency E55.9 Active Medications Medication Code Code Instructions Start End Status Dosage System Date Date Tradjenta [facility] 96765585172 5 MG Orally Once Active 1 tablet a day Lisinopril [facility] 83412888841 5 Active 1 EACH ONCE A DAY ORALLY Imitrex ND 82306891999 25 MG Orally Active 1 tablet twice a day as needed Potassium [facility] 62270521178 20 MEQ Orally Active 1 tablet Chloride Once a day with food Omeprazole [facility] 54037753345 40 Active 1 EACH DAILY ORALLY Bactrim DS [facility] 97329944579 800-160 MG Dec 23, Active 1 tablet Orally Twice a 2017 day Omeprazole [facility] 29535179476 20 MG Orally Active 1 capsule Once a day Lisinopril [facility] 38327873947 5 MG Active 1 EACH ONCE A DAY ORALLY Results Name Result Date Reference Range Unit Abnormality Flag Lipid Profile ----HDL Cholesterol 34 20180622 40-60 mg/dL L ----LDL Cholesterol, 92 20180622 <130 Calculated ----Cholesterol/HDL Ratio 4.38 20180622 ----Cholesterol Level 149 29388254 <200 mg/dL ----Triglycerides Level 115 61198737 <150 mg/dL Hemoglobin A1C ----Hemoglobin A1c 6.2 20180622 4.2-6.3 % CBC with Automated Diff ----Basophils % 0.5 67517362 0-1.3 % ----Eosinophils % 1.3 67638120 0-4.4 % ----Absolute Lymphocytes 3.4 [id number] 0.7-4.9 (CBC) ----Absolute Neutrophil 4.2 80117738 1.8-8.0 ----Red Cell Distribution 14.4 [id number] 12.1-15.2 % Width ----Absolute Eosinophils 0.1 36744159 0-0.5 ----Platelets 273 71082975 152-406 ----Absolute Monocytes 0.6 31426115 0.1-1.3 ----MCHC 33.7 20180622 32.0-36.0 g/dL ----MCH 28.3 [id number] 27.0-35.0 pg ----MCV 83.9 20180622 80-100 fL ----Neutrophils % 50.1 20180622 41.7-73.7 % ----MPV 10.0 92683871 7.6-11.3 fL ----Monocytes % 7.3 81934247 3.3-12.3 % ----Lymphocytes % 40.8 45751741 15.3-44.8 % ----Absolute Basophils 0.0 20180622 0-0.5 ----White Blood Count 8.4 20180622 4.3-10.9 ----RBC Red Blood Cell Count 4.92 20180622 3.86-4.86 M/ul H ----Hemoglobin 13.9 20180622 12.0-15.0 g/dL ----Hematocrit 41.3 20180622 36.0-45.0 % Comprehensive Metabolic Panel ----Creatinine 0.61 20180622 0.55-1.3 mg/dL ----BUN Blood Urea Nitrogen 7 20180622 7-18 mg/dL ----AST/SGOT 18 20180622 15-37 U/L ----Glomerular Filtration > 90 20180622 =/>90 Rate ----Alkaline Phosphatase 142 20180622 45-117 U/L H ----Bilirubin Total 0.4 20180622 0.2-1.0 mg/dL ----ALT/SGPT 23 20180622 12-78 U/L ----Albumin 3.4 20180622 3.4-5.0 g/dL ----Bicarbonate 29 20180622 21-32 mmol/L ----Globulin 4.2 20180622 2.3-3.5 g/dL H ----Glucose Level 90 20180622 74-106 mg/dL ----Calcium Level 8.0 20180622 8.5-10.1 mg/dL L ----Potassium 4.0 20180622 3.5-5.1 mmol/L ----Protein, Total 7.6 20180622 6.4-8.2 g/dL ----Chloride Level 105 20180622 98-107 mmol/L ----Sodium Level 139 20180622 136-145 mmol/L ----Albumin/Globulin Ratio 0.8 20180622 1.1-1.8 L TSH Thyroid Stimulating Hormone ----Thyroid Stimulating 2.830 20180622 0.360-3.740 [iU]/L Hormone Vitamin D, 25 (OH), TOTAL ----Vitamin D, 25 (OH), TOTAL 11.0 20180622 30-100 ng/mL L Summary Purpose eClinicalWorks Submission
[2018-09-28 17:20] LABS: Urine Blood NEGATIVE (NEG); Urine Glucose NEGATIVE (NEG); Urine Protein TRACE (NEG); Urine Specific Gravity 1.015 (1.005-1.030); Urine pH 8.5 (5.0-7.0)
[2018-09-28] MEDS ORDERED: DEXAMETHASONE 10 MG/ML VIAL ONE (18:13)
[2018-09-28] MEDS ORDERED: KETOROLAC 30 MG/ML INJ ONE (18:14)
--- NOTE | 2018-09-28 18:48 | EDPHYS ---
Physician Documentation [facility] Name: Kimmie Allen Age: 42 yrs Sex: Female : 1975 Arrival Date: 09/28/2018 Time: 15:47 Bed 28 Private MD: ED Physician Telly Borrego HPI: 09/28 15:56 This 42 yrs old Female presents to ER via Wheelchair with complaints of jmm Headache, Vomiting. 15:56 The patient complains of pain to the right frontal area and right temporal area. Onset: jmm The symptoms/episode began/occurred acutely, 1 hour(s) ago. Associated signs and symptoms: Pertinent positives: nausea, Pertinent negatives: fever. This is a 42 year old female with a history of migraines headaches, GERD, HTN that presents to the ED with complaints of right sided headache beginning approx 1 hour ago. Patient states head is more intense than previous. Patient also complains of tingling to her left fingertips which has resolved. Patient denies slurred speech, difficulty walking, or any motor weakness. . 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 - Social history:: Smoking status: Patient/guardian denies using tobacco. - Ebola Screening: : Patient negative for fever greater than or equal to 101.5 degrees Fahrenheit, and additional compatible Ebola Virus Disease symptoms Patient denies exposure to infectious person Patient denies travel to an Ebola-affected area in the 21 days before illness onset No symptoms or risks identified at this time. ROS: 15:56 Constitutional: Negative for fever, chills, and weight loss, Cardiovascular: Negative jmm for chest pain, palpitations, and edema, Respiratory: Negative for shortness of breath, cough, wheezing, and pleuritic chest pain. 15:56 Neuro: Positive for headache, tingling. 15:56 All other systems are negative. Exam: 15:56 Constitutional: This is a well developed, well nourished patient who is awake, alert, jmm and in no acute distress. Head/Face: atraumatic. Eyes: EOMI, no conjunctival erythema appreciated ENT: Moist Mucus Membranes Neck: Trachea midline, Supple Chest/axilla: Normal chest wall appearance and motion. Cardiovascular: Regular rate and rhythm. No edema appreciated Respiratory: Normal respirations, no respiratory distress appreciated Abdomen/GI: Non distended, soft Back: Normal ROM Skin: General appearance color normal MS/ Extremity: Moves all extremities, no obvious deformities appreciated, no edema noted to the lower extremities 15:56 Neuro: Orientation: is normal, Mentation: is normal, Memory: is normal, Cerebellar function: normal finger to nose testing, heel to paula testing is normal, Motor: is normal, Gait: is steady, no pronator drift appreciated. 15:56 Psych: Behavior/mood is pleasant, cooperative. Vital Signs: 15:51 BP 160 / 78; Pulse 90; Resp 18; Temp 98.1; Pulse Ox 98% on R/A; Weight 114.31 kg; aj Height 5 ft. 1 in. (154.94 cm); 17:47 BP 153 / 93; Pulse 87; Resp 18; Pulse Ox 99% ; sv 18:07 BP 126 / 76; Pulse 77; Resp 20; Pulse Ox 98% ; sv 18:54 BP 122 / 77; Pulse 76; Resp 18; Pulse Ox 99% ; Pain 0/10; sv 18:55 Pain 0/10; sv 18:55 Pain 0/10; sv 15:51 Body Mass Index 47.61 (114.31 kg, 154.94 cm) aj MDM: 15:56 Patient medically screened. [facility] 18:44 Data reviewed: vital signs, nurses notes. Counseling: I had a detailed discussion with brian the patient and/or guardian regarding: the historical points, exam findings, and any diagnostic results supporting the discharge/admit diagnosis, lab results, radiology results, the need for outpatient follow up, to return to the emergency department if symptoms worsen or persist or if there are any questions or concerns that arise at home. ED course: Neuro exam normal. Headache relieved in the ED. I do not suspect SAH or meningitis. Patient is advised to follow up with Neurology and otherwise given strict return precautions. Patient understood and agrees with the plan of care. . 09/28 16:41 Order name: Urine Dipstick--Ancillary (enter results); Complete Time: 17:25 ag 09/28 16:41 Order name: Urine --Ancillary (enter results); Complete Time: 17:25 ag 09/28 15:55 Order name: CT Head Brain wo Cont; Complete Time: 16:13 [facility] Administered Medications: 16:33 Drug: NS 0.9% 1000 ml Route: IV; Rate: 1 bolus; Site: right antecubital; sv 17:48 Follow up: Response: No adverse reaction; IV Status: Completed infusion; IV Intake: sv 1000ml 16:33 Drug: Reglan 10 mg Route: IVP; Site: right antecubital; sv 17:47 Follow up: Response: No adverse reaction sv 16:33 Drug: diphenhydrAMINE 12.5 mg Route: IVP; Site: right antecubital; sv 17:47 Follow up: Response: No adverse reaction sv 18:04 Drug: TORadol 30 mg Route: IVP; Site: right antecubital; sv 18:55 Follow up: Pain 0/10 Adult; Response: No adverse reaction; Marked relief of symptoms sv 18:06 Drug: Decadron - Dexamethasone 10 mg Route: IVP; Site: right antecubital; sv 18:55 Follow up: Pain 0/10 Adult; Response: No adverse reaction; Marked relief of symptoms sv Disposition: 09/29 07:14 Co-signature as Attending Physician, Telly Borrego MD I agree with the assessment and colby plan of care. Disposition: 09/28/18 18:47 Discharged to Home. Impression: Headache. - Condition is Stable. - Discharge Instructions: General Headache Without Cause. - Medication Reconciliation Form, Thank You Letter, Antibiotic Education, Prescription Opioid Use form. - Follow up: Camron Bang MD; When: 2 - 3 days; Reason: Recheck today's complaints, Continuance of care, Re-evaluation by your physician. Signatures: Dispatcher [employer] Diann Rios RN RN sv Myers, Amanda, RN RN aj Anderson, Corey, MD MD cha Mickail, Joel, PA PA brian Corrections: (The following items were deleted from the chart) 09/28 18:56 18:47 09/28/2018 18:47 Discharged to Home. Impression: Headache. Condition is Stable. sv Forms are Medication Reconciliation Form, Thank You Letter, Antibiotic Education, Prescription Opioid Use. Follow up: Camron Bang; When: 2 - 3 days; Reason: Recheck today's complaints, Continuance of care, Re-evaluation by your physician. luis
--- NOTE | 2018-09-28 18:48 | ER ---
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 Transition of care: patient was not received from another setting of care. Onset of symptoms was September 28, 2018. Risk Assessment: Do you want to hurt yourself or someone else? Patient reports no desire to harm self or others. Initial Sepsis Screen: Does the patient meet any 2 criteria? No. Patient's initial sepsis screen is negative. Does the patient have a suspected source of infection? No. Patient's initial sepsis screen is negative. Care prior to arrival: None. 15:49 Method Of Arrival: Wheelchair 15:49 Acuity: JOSHUA 2 Triage Assessment: 15:51 Headache History: The patient has had previous headaches and this one is different than aj previous episodes. General: Appears in no apparent distress. comfortable, Behavior is calm, cooperative, appropriate for age. Pain: Complains of pain in right frontal area, right side of the back of head, right temporal area, right side of forehead, right occipital area, right ear and right hoahaoism. Neuro: Level of Consciousness is awake, alert, obeys commands, Oriented to person, place, time, situation, Appropriate for age Corporate Attorney are equal bilaterally Moves all extremities. Full function Gait is steady, Speech is normal, Facial symmetry appears normal, Pupils are PERRLA. Respiratory: Airway is patent Trachea midline Respiratory effort is even, unlabored, Respiratory pattern is regular, symmetrical. Derm: Skin is intact, is healthy with good turgor, Skin is pink, warm \T\ dry. normal. 15:51 Neuro: Reports headache. 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 - Social history:: Smoking status: Patient/guardian denies using tobacco. - Ebola Screening: : Patient negative for fever greater than or equal to 101.5 degrees Fahrenheit, and additional compatible Ebola Virus Disease symptoms Patient denies exposure to infectious person Patient denies travel to an Ebola-affected area in the 21 days before illness onset No symptoms or risks identified at this time. Screenin:20 Abuse screen: Denies threats or abuse. Denies injuries from another. Nutritional sv screening: No deficits noted. Tuberculosis screening: No symptoms or risk factors identified. Fall Risk None identified. Assessment: 16:20 General: Appears in no apparent distress. uncomfortable, well groomed, well developed, sv Behavior is calm, cooperative, appropriate for age. Pain: Complains of pain in right frontal area, right side of the back of head, right temporal area, right side of forehead, right occipital area, right ear, right hoahaoism, right eye and right base of the skull Pain currently is 10 out of 10 on a pain scale. Pain began 1 hour ago. Is continuous, Alleviated by nothing. Noted to be quiet/stoic. Neuro: Level of Consciousness is awake, alert, obeys commands, Oriented to person, place, time, situation, Moves all extremities. Full function Gait is steady, Speech is normal. Neuro: Reports numbness in palmar aspect of distal phalanx of left little finger, palmar aspect of distal phalanx of left ring finger, palmar aspect of distal phalanx of left middle finger, palmar aspect of distal phalanx of left index finger and palmar aspect of distal phalanx of left thumb since started about an hour ago with the headache but has gone away at this time. Respiratory: Airway is patent Respiratory effort is even, unlabored, Respiratory pattern is regular, symmetrical. GI: Reports vomiting. Derm: Skin is pink, warm \T\ dry. Musculoskeletal: Range of motion: intact in all extremities. 17:48 Reassessment: Patient appears in no apparent distress at this time. Patient and/or sv family updated on plan of care and expected duration. Pain level reassessed. Patient is alert, oriented x 3, equal unlabored respirations, skin warm/dry/pink. States she feels her headache coming back. Patient states feeling better. 18:07 Reassessment: Patient appears in no apparent distress at this time. Patient and/or sv family updated on plan of care and expected duration. Pain level reassessed. Patient is alert, oriented x 3, equal unlabored respirations, skin warm/dry/pink. Vital Signs: 15:51 BP 160 / 78; Pulse 90; Resp 18; Temp 98.1; Pulse Ox 98% on R/A; Weight 114.31 kg; aj Height 5 ft. 1 in. (154.94 cm); 17:47 BP 153 / 93; Pulse 87; Resp 18; Pulse Ox 99% ; sv 18:07 BP 126 / 76; Pulse 77; Resp 20; Pulse Ox 98% ; sv 18:54 BP 122 / 77; Pulse 76; Resp 18; Pulse Ox 99% ; Pain 0/10; sv 18:55 Pain 0/10; sv 18:55 Pain 0/10; sv 15:51 Body Mass Index 47.61 (114.31 kg, 154.94 cm) aj ED Course: 15:47 Patient arrived in ED. ds1 15:50 Triage completed. aj 15:51 Arm band placed on right wrist. Patient placed in an exam room. aj 15:53 Misbah Herrera PA is PHCP. jmm 15:54 Telly Borrego MD is Attending Physician. jm 15:57 Diann Vital, GILDA is Primary Nurse. sv 16:[address] via wheelchair. sv 16:03 CT Head Brain wo Cont In Process Unspecified. EDMS 16:20 Patient has correct armband on for positive identification. Placed in gown. Bed in low sv position. Call light in reach. Door closed. Lights dimmed. Head of bed elevated. 16:28 Inserted saline lock: 20 gauge in right antecubital area, using aseptic technique. lt1 18:46 Camron Bang MD is Referral Physician. [facility] 18:55 No provider procedures requiring assistance completed. IV discontinued, intact, sv bleeding controlled, No redness/swelling at site. Pressure dressing applied. Administered Medications: 16:33 Drug: NS 0.9% 1000 ml Route: IV; Rate: 1 bolus; Site: right antecubital; sv 17:48 Follow up: Response: No adverse reaction; IV Status: Completed infusion; IV Intake: sv 1000ml 16:33 Drug: Reglan 10 mg Route: IVP; Site: right antecubital; sv 17:47 Follow up: Response: No adverse reaction sv 16:33 Drug: diphenhydrAMINE 12.5 mg Route: IVP; Site: right antecubital; sv 17:47 Follow up: Response: No adverse reaction sv 18:04 Drug: TORadol 30 mg Route: IVP; Site: right antecubital; sv 18:55 Follow up: Pain 0/10 Adult; Response: No adverse reaction; Marked relief of symptoms sv 18:06 Drug: Decadron - Dexamethasone 10 mg Route: IVP; Site: right antecubital; sv 18:55 Follow up: Pain 0/10 Adult; Response: No adverse reaction; Marked relief of symptoms sv Intake: 17:48 IV: 1000ml; Total: 1000ml. sv Outcome: 18:47 Discharge ordered by . luis 18:55 Discharged to home ambulatory, with family. sv 18:55 Condition: stable 18:55 Discharge instructions given to patient, Instructed on discharge instructions, follow up and referral plans. Demonstrated understanding of instructions, follow-up care. 18:56 Patient left the ED. sv Signatures: Dispatcher [employer] Diann Rios RN RN sv Myers, Amanda, RN RN aj Mickail, Joel, PA PA jmm Sanford, Demi ds1 Taylor Smith lt1
== END 2018-09-28 18:56 | disposition home or self-care (01) ==
LOC: ER 15:43
DX: R51 Headache (principal); E11.9 Type 2 diabetes mellitus without complications; I10 Essential (primary) hypertension; K21.9 Gastro-esophageal reflux disease without esophagitis
CPT/HCPCS: 70450; 81003; 81025; 96361; 96374; 96375; 99284; J1100; J2765; J7030

== ENCOUNTER 2019-06-22 09:27 | Emergency (ER) | payer BC ==
--- OUTSIDE RECORDS SUMMARY | 2019-06-22 09:30 | XMS REPORT ---
:1975 Author Organization [facility] Address [address] [place] [address] Dr. Cintron [address] [place] [id number] Care Team Providers Name Role Phone Unavailable Unavailable Unavailable Problems This patient has no known problems. Allergies, Adverse Reactions, Alerts This patient has no known allergies or adverse reactions. Medications This patient has no known medications.
--- OUTSIDE RECORDS SUMMARY | 2019-06-22 09:31 | XMS REPORT ---
:1975 Author Organization eClinicalWorks Care Team Providers Name Role Phone Edwin Tamra Provider Role Unavailable Allergies, Adverse Reactions, Alerts Substance Reaction Event Type Rocephin Info Not Available Drug Allergy Problems Problem Type Condition Code Onset Dates Condition Status Assessment Tension headache G44.209 Active Assessment Frequent headaches R51 Active Problem Elevated blood pressure reading R03.0 Active without diagnosis of hypertension Problem Fatigue R53.83 Active Problem Abscess L02.91 Active Problem Alkaline phosphatase elevation R74.8 Active Problem Vitamin D deficiency E55.9 Active Problem Constipation, unspecified K59.00 Active constipation type Problem Daytime somnolence R40.0 Active Problem Gastroesophageal reflux disease K21.0 Active with esophagitis Problem Abnormal mammogram R92.8 Active Problem Controlled type 2 diabetes mellitus E11.9 Active without complication, without long-term current use of insulin Problem Increased urinary frequency R35.0 Active Problem Migraine, unspecified, not G43.901 Active intractable, with status migrainosus Problem Tension headache G44.209 Active Problem Allergic rhinitis J30.9 Active Problem Obesity, morbid, BMI 40.0-49.9 E66.01 Active Problem Chronic fatigue R53.82 Active Problem Abnormal uterine bleeding (AUB) N93.9 Active Problem Menorrhagia with irregular cycle N92.1 Active Problem Encounter for gynecological Z01.419 Active examination without abnormal finding Problem Pelvic pain R10.2 Active Problem Prediabetes R73.03 Active Problem Encounter for screening mammogram Z12.31 Active for breast cancer Problem Upper respiratory tract infection, J06.9 Active unspecified type Problem Seasonal allergic rhinitis, J30.2 Active unspecified trigger Problem Well woman exam with routine Z01.419 Active gynecological exam Problem Cough R05 Active Medications Medication Code Code Instructions Start End Status Dosage System Date Date Tradjenta [facility] 48965779898 5 MG Orally Active 1 tablet Once a day Omeprazole ND 12817085036 20 MG Orally Active 1 capsule Once a day Methocarbamol ND 51335065567 500 MG Orally Feb 22Feb Active 1 tablet every 8 hrs 2018 07, for muscle 2019 pain Metformin HCl [facility] 39263754476 500 MG Orally October Active 1 tablet twice a day 16, with a 2019 meal Bactrim DS [facility] 59498720664 800-160 MG Active 1 tablet Orally Twice a day Lisinopril [facility] 62301726704 5 Active 1 EACH ONCE A DAY ORALLY Pantoprazole [facility] [address]-42 Active not Sodium defined Contour Next Test [facility] 01345023913 - In Vitro once October Active as daily 2018 Ergocalciferol [facility] 98250454177 336[address] UNIT October Active 1 capsule Orally once a , , 2018 Imitrex [facility] 47924124643 25 MG Orally Active 1 tablet twice a day as needed Cheratussin AC [facility] 20320966728 100-10 MG/5ML Active 5 ml Orally every 6 hrs Lisinopril [facility] 18444282493 5 MG Active 1 EACH ONCE A DAY ORALLY Omeprazole [facility] 10218751536 40 Active 1 EACH DAILY ORALLY Potassium [facility] 70486024088 20 MEQ Orally Active 1 tablet Chloride Once a day with food Results No Known Results Summary Purpose eClinicalWorks Submission
[2019-06-22] MEDS ORDERED: MORPHINE 4 MG/ML SYR ONE (10:36)
[2019-06-22] MEDS ORDERED: ONDANSETRON 4 MG/2 ML VIAL ONE (10:36)
[2019-06-22] MEDS ORDERED: FAMOTIDINE 20 MG/2 ML VIAL IV ONE (10:36)
--- NOTE | 2019-06-22 10:38 | RAD REPORT ---
EXAM DESCRIPTION: RAD - Chest Single View - 06/22/2019 10:30 am CLINICAL HISTORY: ABDOMINAL DISTENTION Chest pain. COMPARISON: Chest Single View dated 03/03/2018; CHEST SINGLE VIEW dated 03/16/2015 FINDINGS: Portable technique limits examination quality. The lungs are grossly clear. The heart is normal in size. No displaced fractures. IMPRESSION: No acute intrathoracic process suspected.
[2019-06-22 11:13] LABS: Absolute Lymphocytes (CBC) 2.9 K/uL (0.7-4.9); Basophils % 0.5 % (0-1.3); Hematocrit 44.2 % (36.0-45.0); Lymphocytes % 28.5 % (15.3-44.8); MPV 10.5 fL (7.6-11.3); RBC Red Blood Cell Count 5.18 M/uL (3.86-4.86)
--- NOTE | 2019-06-22 11:19 | RAD REPORT ---
EXAM DESCRIPTION: US - Abdomen Exam Limited - 06/22/2019 11:04 am CLINICAL HISTORY: ABD PAIN COMPARISON: ABDOMINAL EXAM LIMITED dated 03/16/2015 FINDINGS: The gallbladder demonstrates no gallstones. No pericholecystic fluid or gallbladder wall t hickening. The common bile duct is normal measuring 6 mm. The liver demonstrates no findings of intrahepatic biliary dilatation. IMPRESSION: Unremarkable examination.
--- NOTE | 2019-06-22 12:09 | RAD REPORT ---
EXAM DESCRIPTION: CT - Abdomen Pelvis W Contrast - 06/22/2019 11:57 am CLINICAL HISTORY: Abd pain;Abdominal distention COMPARISON: CT ABD PELVIS W CONTRAST dated 03/16/2015; Transvaginal Study Probe dated 11/22/2018 TECHNIQUE: Biphasic, helical CT imaging of the abdomen and pelvis was performed following 100 ml non -ionic IV contrast. Oral contrast was given. All CT scans are performed using dose optimization technique as appropriate and may include automated exposure control or mA/KV adjustment according to patient size. FINDINGS: No suspicious findings in the lung bases. The liver, spleen, and pancreas show no suspicious findings. Liver does show a mild diffuse fatty inf iltration pattern. No gallbladder or biliary tree abnormality. Gallstones can be occult on CT imaging . No suspicion for active gallbladder process. Symmetric renal function is seen with no hydronephrosis or suspicious renal mass. No pyelonephritis o r acute parenchymal process. No bladder abnormalities. No adrenal abnormalities. Enlarged multi fibro id uterus identified. Largest fibroid in the right lateral uterus approximately 3-3.5 cm in size. Valders rine size and fibroid pattern matches the October 2018 ultrasound. No ovarian or adnexal suspicious find ing. No gastric dilatation or wall thickening. No duodenal abnormality seen. Patient has a few small 10 mi llimeter or less periportal and gastrohepatic ligament region lymph nodes. This is a stable lymph nod e pattern. No acute colon process seen. Fatty ileocecal valve is present. Appendicitis findings are n ot present. Very minimal diverticulosis findings are seen without diverticulitis. No free air, free fluid or inflammatory stranding. No hernia, mass or bulky lymphadenopathy. No suspicious bony findings. IMPRESSION: Contrast enhanced CT abdomen and pelvis showing no acute finding. Nonacute findings detailed in the body of the report.
[2019-06-22 12:21] LABS: ALT/SGPT 26 U/L (12-78); AST/SGOT 29 U/L (15-37); Albumin 3.4 g/dL (3.4-5.0); Alkaline Phosphatase 133 U/L (45-117); BUN Blood Urea Nitrogen 8 mg/dL (7-18); Bicarbonate 28 mmol/L (21-32); Bilirubin Direct 0.1 mg/dL (0-0.2); Bilirubin Total 0.4 mg/dL (0.2-1.0); Glucose Level 96 mg/dL (74-106); Lipase 143 U/L (73-393); Potassium 3.7 mmol/L (3.5-5.1); Protein, Total 7.5 g/dL (6.4-8.2); Sodium Level 138 mmol/L (136-145)
--- NOTE | 2019-06-22 12:39 | ER ---
Nurse's Notes [facility] Name: Kimmie Allen Age: 43 yrs Sex: Female : 1975 Arrival Date: 06/22/2019 Time: 09:31 Bed 8 Private MD: Diagnosis: Abdominal tenderness;Functional dyspepsia;Gastro-esophageal reflux disease;Type 2 diabetes mellitus Presentation: 06/22 09:36 Chief complaint: Patient states: upper abd pain that began this morning around 0800. Pt aa5 c/o nausea, denies vomiting, diarrhea. Pt states "I've had this pain before and my GI doctor ran all this tests and all they could find was something wrong with the valves going to my pancreas". Coronavirus screen: The patient has NOT traveled to [place] in the past 14 days. Ebola Screen: Patient negative for fever greater than or equal to 101.5 degrees Fahrenheit, and additional compatible Ebola Virus Disease symptoms. Initial Sepsis Screen: Does the patient meet any 2 criteria? No. Patient's initial sepsis screen is negative. Does the patient have a suspected source of infection? No. Patient's initial sepsis screen is negative. Risk Assessment: Do you want to hurt yourself or someone else? Patient reports no desire to harm self or others. 09:36 Method Of Arrival: Ambulatory aa5 09:36 Acuity: JOSHUA 3 aa5 09:45 Onset of symptoms is unknown. Historical: - Allergies: 09:37 Rocephin; aa5 - PMHx: 09:37 Diabetes - NIDDM; GERD; Hypertension; aa5 - PSHx: 09:37 Tubal ligation; aa5 - Immunization history:: Adult Immunizations unknown. - Social history:: Smoking status: Patient denies any tobacco usage or history of. - Family history:: not pertinent. Screenin:21 Abuse screen: Denies threats or abuse. Nutritional screening: No deficits noted. Tuberculosis screening: No symptoms or risk factors identified. Fall Risk None identified. Assessment: 11:11 General: Appears distressed, uncomfortable, Behavior is calm. Pain: Complains of pain ah in chest and left upper quadrant and right upper quadrant and epigastric area Pain does not radiate. Pain currently is 6 out of 10 on a pain scale. at worst was 1010 out of 10 on a pain scale. Quality of pain is described as crampy, pressure, Pain began 2 months on and off, worse today Is intermittent, Alleviated by repositioning, Noted to be grimacing, moaning, Also complains of nausea, bloating Current management Goal of pain control is to be pain free. Neuro: Level of Consciousness is awake, alert, Oriented to person, place, time, situation, [employer] are equal bilaterally Reports. Cardiovascular: Heart tones S1 S2 present Capillary refill < 3 seconds Patient's skin is warm and dry. Pulses are palpable in right radial artery, right dorsalis pedis artery, left radial artery and left dorsalis pedis artery. Respiratory: Airway is patent Respiratory effort is even, unlabored, Respiratory pattern is regular, symmetrical, Breath sounds are clear bilaterally. GI: Abdomen is round distended, Last BM was June 22, 2019. Bowel sounds diminished in right upper quadrant, left upper quadrant, right lower quadrant and left lower quadrant " just feels bloated". : No signs and/or symptoms were reported regarding the genitourinary system. EENT: No signs and/or symptoms were reported regarding the EENT system. Derm: Skin is intact, is healthy with good turgor. Musculoskeletal: No signs and/or symptoms reported regarding the musculoskeletal system. 12:25 Reassessment: Patient appears in no apparent distress at this time. Patient and/or ah family updated on plan of care and expected duration. Pain level reassessed. Patient is alert, oriented x 3, equal unlabored respirations, skin warm/dry/pink. pain is better at this time, 0/10 Pt lying in bed with resp even and unlabored. Family at bedside. 13:05 Reassessment: Patient appears in no apparent distress at this time. Patient and/or ah family updated on plan of care and expected duration. Pain level reassessed. Patient is alert, oriented x 3, equal unlabored respirations, skin warm/dry/pink. Pt states that she is still feeling better and pain is still diminished at this time. Vital Signs: 09:37 BP 138 / 85; Pulse 94; Resp 20 S; Temp 98.8(TE); Pulse Ox 100% on R/A; Weight 114.31 kg aa5 (R); Height 5 ft. 1 in. (154.94 cm) (R); Pain 10/10; 09:47 BP 153 / 92; Pulse 79; Resp 20; Pulse Ox 98% ; ah 10:44 BP 149 / 89; Pulse 79; Resp 18; Pulse Ox 98% ; ah 12:07 BP 155 / 78; Pulse 66; Resp 18; Pulse Ox 100% ; ah 13:00 BP 117 / 61; Pulse 64; Resp 18; Pulse Ox 100% ; ah 09:37 Body Mass Index 47.61 (114.31 kg, 154.94 cm) aa5 ED Course: 09:31 Patient arrived in ED. mr 09:33 Telly Borrego MD is Attending Physician. colby 09:35 Arm band placed on. aa5 09:37 Triage completed. aa5 10:26 Yuridia Lucero, RN is Primary Nurse. ah 10:30 Chest Single View XRAY In Process Unspecified. EDMS 10:38 Inserted saline lock: 22 gauge in right antecubital area, using aseptic technique. ah 11:05 US Abdomen Limited In Process Unspecified. EDMS 11:21 No provider procedures requiring assistance completed. ah 11:58 CT Abd/Pelvis - PO and IV Contrast In Process Unspecified. EDMS 12:38 José Luis Christensen MD is Referral Physician. colby 13:25 Patient has correct armband on for positive identification. Placed in gown. Bed in low ah position. Call light in reach. Side rails up X 1. Adult w/ patient. 13:25 IV discontinued, intact, bleeding controlled, No redness/swelling at site. Pressure ah dressing applied. Administered Medications: 10:45 Drug: Pepcid 20 mg Route: IVP; Site: right antecubital; 11:45 Follow up: Response: No adverse reaction 10:45 Drug: morphine 4 mg {Note: Rass 1.} Route: IVP; Site: right antecubital; 11:45 Follow up: Response: No adverse reaction; Pain is decreased 10:45 Drug: Zofran (Ondansetron) 4 mg Route: IVP; Site: right antecubital; 11:45 Follow up: Response: No adverse reaction; Nausea is decreased Outcome: 12:39 Discharge ordered by . colby 13:15 Discharged to home ambulatory. 13:15 Condition: good 13:15 Discharge instructions given to patient, Instructed on discharge instructions, follow up and referral plans. medication usage, Demonstrated understanding of instructions, follow-up care, medications, Prescriptions given X 3. 13:26 Patient left the ED. Signatures: Dispatcher [employer] EDTelly Lerner MD MD cha Rivera Jane Doris Hein, RN RN Yuridia Brooks RN RN
--- NOTE | 2019-06-22 12:39 | EDPHYS ---
Physician Documentation [facility] Name: Kimmie Allen Age: 43 yrs Sex: Female : 1975 Arrival Date: 06/22/2019 Time: 09:31 Bed 8 Private MD: ED Physician Telly Borrego HPI: 06/22 10:12 This 43 yrs old Female presents to ER via Ambulatory with complaints of [facility] Abdominal Pain, Nausea. 10:12 The patient presents to the emergency department with nausea, abdominal pain, of the [facility] epigastric area, right upper quadrant and left upper quadrant. Onset: The symptoms/episode began/occurred this morning. Possible causes: unknown. The symptoms are aggravated by nothing. The symptoms are alleviated by nothing. Associated signs and symptoms: The patient has no apparent associated signs or symptoms. Severity of symptoms: At their worst the symptoms were mild in the emergency department the symptoms are unchanged. The patient has experienced similar episodes in the past, multiple times. Historical: - Allergies: 09:37 Rocephin; aa5 - PMHx: 09:37 Diabetes - NIDDM; GERD; Hypertension; aa5 - PSHx: 09:37 Tubal ligation; aa5 - Immunization history:: Adult Immunizations unknown. - Social history:: Smoking status: Patient denies any tobacco usage or history of. - Family history:: not pertinent. ROS: 10:12 Constitutional: Negative for fever, chills, and weight loss, Eyes: Negative for injury, colby pain, redness, and discharge, ENT: Negative for injury, pain, and discharge, Neck: Negative for injury, pain, and swelling, Cardiovascular: Negative for chest pain, palpitations, and edema, Respiratory: Negative for shortness of breath, cough, wheezing, and pleuritic chest pain, Back: Negative for injury and pain, : Negative for injury, bleeding, discharge, and swelling, MS/Extremity: Negative for injury and deformity, Skin: Negative for injury, rash, and discoloration, Neuro: Negative for headache, weakness, numbness, tingling, and seizure, Psych: Negative for depression, anxiety, suicide ideation, homicidal ideation, and hallucinations, Allergy/Immunology: Negative for hives, rash, and allergies, Endocrine: Negative for neck swelling, polydipsia, polyuria, polyphagia, and marked weight changes, Hematologic/Lymphatic: Negative for swollen nodes, abnormal bleeding, and unusual bruising. 10:12 Abdomen/GI: Positive for abdominal pain, of the epigastric area and right upper quadrant. Exam: 10:12 Constitutional: This is a well developed, well nourished patient who is awake, alert, colby and in no acute distress. Head/Face: Normocephalic, atraumatic. Eyes: Pupils equal round and reactive to light, extra-ocular motions intact. Lids and lashes normal. Conjunctiva and sclera are non-icteric and not injected. Cornea within normal limits. Periorbital areas with no swelling, redness, or edema. ENT: Nares patent. No nasal discharge, no septal abnormalities noted. Tympanic membranes are normal and external auditory canals are clear. Oropharynx with no redness, swelling, or masses, exudates, or evidence of obstruction, uvula midline. Mucous membranes moist. Neck: Trachea midline, no thyromegaly or masses palpated, and no cervical lymphadenopathy. Supple, full range of motion without nuchal rigidity, or vertebral point tenderness. No Meningismus. Chest/axilla: Normal chest wall appearance and motion. Nontender with no deformity. No lesions are appreciated. Cardiovascular: Regular rate and rhythm with a normal S1 and S2. No gallops, murmurs, or rubs. Normal PMI, no JVD. No pulse deficits. Respiratory: Lungs have equal breath sounds bilaterally, clear to auscultation and percussion. No rales, rhonchi or wheezes noted. No increased work of breathing, no retractions or nasal flaring. Back: No spinal tenderness. No costovertebral tenderness. Full range of motion. Female : Normal external genitalia. Skin: Warm, dry with normal turgor. Normal color with no rashes, no lesions, and no evidence of cellulitis. MS/ Extremity: Pulses equal, no cyanosis. Neurovascular intact. Full, normal range of motion. Neuro: Awake and alert, GCS 15, oriented to person, place, time, and situation. Cranial nerves II-XII grossly intact. Motor strength 5/5 in all extremities. Sensory grossly intact. Cerebellar exam normal. Normal gait. Psych: Awake, alert, with orientation to person, place and time. Behavior, mood, and affect are within normal limits. 10:12 Abdomen/GI: Inspection: distension, Bowel sounds: normal, Palpation: mild abdominal tenderness, moderate abdominal tenderness, in the epigastric area, right upper quadrant and left upper quadrant, Liver: no appreciated palpable abnormalities, Hernia: not appreciated. Vital Signs: 09:37 BP 138 / 85; Pulse 94; Resp 20 S; Temp 98.8(TE); Pulse Ox 100% on R/A; Weight 114.31 kg aa5 (R); Height 5 ft. 1 in. (154.94 cm) (R); Pain 10/10; 09:47 BP 153 / 92; Pulse 79; Resp 20; Pulse Ox 98% ; ah 10:44 BP 149 / 89; Pulse 79; Resp 18; Pulse Ox 98% ; ah 12:07 BP 155 / 78; Pulse 66; Resp 18; Pulse Ox 100% ; ah 13:00 BP 117 / 61; Pulse 64; Resp 18; Pulse Ox 100% ; ah 09:37 Body Mass Index 47.61 (114.31 kg, 154.94 cm) aa5 MDM: 09:46 Patient medically screened. [facility] 10:14 Data reviewed: vital signs, nurses notes, lab test result(s), radiologic studies. [facility] 06/22 10:07 Order name: Basic Metabolic Panel; Complete Time: 12:37 [facility] 06/22 10:07 Order name: CBC with Diff; Complete Time: 11:17 [facility] 06/22 10:07 Order name: Creatinine for Radiology; Complete Time: 12:37 [facility] 06/22 10:07 Order name: Hepatic Function; Complete Time: 12:37 [facility] 06/22 10:07 Order name: Lipase; Complete Time: 12:37 [facility] 06/22 12:25 Order name: Urine Dipstick--Ancillary (enter results) 06/22 10:07 Order name: IV Saline Lock; Complete Time: 11:18 [facility] 06/22 10:07 Order name: Chest Single View XRAY; Complete Time: 10:58 [facility] 06/22 10:08 Order name: US Abdomen Limited; Complete Time: 11:42 [facility] 06/22 10:08 Order name: CT Abd/Pelvis - PO and IV Contrast; Complete Time: 12:15 [facility] 06/22 12:27 Order name: Urine --Ancillary (enter results) 06/22 10:07 Order name: Labs collected and sent; Complete Time: 11:18 [facility] 06/22 10:07 Order name: Urine Dipstick-Ancillary (obtain specimen); Complete Time: 12:34 [facility] 06/22 10:07 Order name: Urine Test (obtain specimen); Complete Time: 12:34 [facility] 06/22 11:30 Order name: Labs - recollect needed: chemistry recollect; Complete Time: 11:55 dh4 Administered Medications: 10:45 Drug: Pepcid 20 mg Route: IVP; Site: right antecubital; 11:45 Follow up: Response: No adverse reaction 10:45 Drug: morphine 4 mg {Note: Rass 1.} Route: IVP; Site: right antecubital; 11:45 Follow up: Response: No adverse reaction; Pain is decreased 10:45 Drug: Zofran (Ondansetron) 4 mg Route: IVP; Site: right antecubital; 11:45 Follow up: Response: No adverse reaction; Nausea is decreased Disposition: 06/22/19 12:39 Discharged to Home. Impression: Abdominal tenderness, Functional dyspepsia, Gastro-esophageal reflux disease, Type 2 diabetes mellitus. - Condition is Stable. - Discharge Instructions: Abdominal Pain, Adult, Type 2 Diabetes Mellitus, Diagnosis, Adult, Indigestion, Nausea and Vomiting, Adult, Abdominal Pain, Adult, [id number], Indigestion, [id number], Type 2 Diabetes Mellitus, Diagnosis, Adult, [id number]. - Prescriptions for Bentyl 20 mg Oral Tablet - take 1 tablet by ORAL route every 6 hours As needed; 20 tablet. Pepcid 20 mg Oral Tablet - take 1 tablet by ORAL route every 12 hours for 10 days; 20 tablet. Zofran 4 mg Oral Tablet - take 1 tablet by ORAL route every 12 hours As needed; 20 tablet. - Medication Reconciliation Form, Thank You Letter, Antibiotic Education, Prescription Opioid Use, Work release form form. - Follow up: Private Physician; When: 2 - 3 days; Reason: Recheck today's complaints, Continuance of care, Re-evaluation by your physician. Follow up: José Luis Christensen; When: 2 - 3 days; Reason: Recheck today's complaints, Re-evaluation by your physician. - Problem is new. - Symptoms have improved. Signatures: Dispatcher [employer] EDTelly Lerner MD MD cha Calderon, Audri, RN RN aa5 Yuridia Lucero RN RN Juan Mandujano [facility] Corrections: (The following items were deleted from the chart) 13:26 12:39 06/22/2019 12:39 Discharged to Home. Impression: Abdominal tenderness; Functional ah dyspepsia; Gastro-esophageal reflux disease; Type 2 diabetes mellitus. Condition is Stable. Discharge Instructions: Abdominal Pain, Adult, Type 2 Diabetes Mellitus, Diagnosis, Adult, Indigestion, Nausea and Vomiting, Adult, Abdominal Pain, Adult, [id number], Indigestion, [id number], Type 2 Diabetes Mellitus, Diagnosis, Adult, [id number]. Prescriptions for Bentyl 20 mg Oral Tablet - take 1 tablet by ORAL route every 6 hours As needed; 20 tablet, Pepcid 20 mg Oral Tablet - take 1 tablet by ORAL route every 12 hours for 10 days; 20 tablet, Zofran 4 mg Oral Tablet - take 1 tablet by ORAL route every 12 hours As needed; 20 tablet. and Forms are Medication Reconciliation Form, Thank You Letter, Antibiotic Education, Prescription Opioid Use. Follow up: Private Physician; When: 2 - 3 days; Reason: Recheck today's complaints, Continuance of care, Re-evaluation by your physician. Follow up: José Luis Christensen; When: 2 - 3 days; Reason: Recheck today's complaints, Re-evaluation by your physician. Problem is new. Symptoms have improved. colby
[2019-06-22 12:42] LABS: Urine Blood NEGATIVE (NEG); Urine Glucose TRACE (NEG); Urine Protein NEGATIVE (NEG)
[2019-06-22 13:32] VITALS: TEMP 98.8
[2019-06-22 13:36] VITALS: O2SAT 100
[2019-06-22 13:37] VITALS: BP 117/61
== END 2019-06-22 13:26 | disposition home or self-care (01) ==
LOC: ER 09:27
DX: K30 Functional dyspepsia (principal); K21.9 Gastro-esophageal reflux disease without esophagitis; E11.9 Type 2 diabetes mellitus without complications; I10 Essential (primary) hypertension; Z88.1 Allergy status to other antibiotic agents
CPT/HCPCS: 85025; 80048; 36415; 81025; 80076; 81003; 83690; 74177; 71045; 76705; 96375; 96374; 99284; Q9967; J2405

== ENCOUNTER 2020-03-04 09:56 | Day surgery (SDC) | payer BC ==
[2020-02-27 15:34] LABS: Urine Appearance CLEAR; Urine Bilirubin NEGATIVE (NEG); Urine Blood NEGATIVE (NEG); Urine Color YELLOW; Urine Glucose 3+ (NEG); Urine Protein NEGATIVE (NEG); Urine Specific Gravity >=1.030 (1.005-1.030); Urine Urobilinogen 0.2 mg/dL (0.2-1.0); Urine pH 5.5 (5.0-7.0)
[2020-02-27 15:38] LABS: Urine Microscopic Reflex NO UMIC
[2020-02-27 15:40] LABS: Absolute Lymphocytes (CBC) 3.5 K/uL (0.7-4.9); Basophils % 0.5 % (0-1.3); Hematocrit 42.2 % (36.0-45.0); Lymphocytes % 35.9 % (15.3-44.8); MPV 10.6 fL (7.6-11.3); RBC Red Blood Cell Count 5.05 M/uL (3.86-4.86)
[2020-03-03 07:43] LABS: Specific Gravity >= 1.030 (1.005-1.030)
--- OUTSIDE RECORDS SUMMARY | 2020-03-04 10:02 | XMS REPORT | Summary of Care ---
:1975 Author Organization [facility] - [facility] Address [address] [place] [id number] Care Team Providers Name Role Phone Vidal Maya MD Primary Care Provider Reason for Visit Reason Comments Cough Congestion Encounter Details Date Type Department Care Team Description 01/25/2020 Urgent Care [facility] Family Unknown, Attending Acu te frontal sinusitis, recurrence not specified (Primary Dx); Medicine - [place] Cristian Oakes PA-C [address] [place] [address] Contact with or exposure to viral diseas [address] Provider, [facility] [place] [phone] Allergies Active Allergy Reactions Severity Noted Date Comments Ceftriaxone Sodium Unknown - See comments 05/12/2017 fainting documented as of this encounter (statuses as of 01/25/2020) Medications Medication Sig Dispensed Refills Start Date End Date Status pantoprazole 40 mg EC TK 1 T PO D 1 09/21/2018 Active tablet cholecalciferol, Take 1,000 Units 0 Active vitamin D3, (VITAMIN by mouth daily. D3) 1,000 unit tablet VITAMIN C ORAL Take 1 tablet by 0 Active mouth at bedtime. ZINC ORAL Take 1 tablet by 0 Act lyndsey mouth daily. SUMAtriptan (IMITREX) Take 25 mg by 0 Active 25 mg tablet mouth. 1 tablet po x 1 dose PRN migraine OLVERA, may repeat in 2 hours if needed lisinopril 10 mg Take 1 tablet by 90 tablet 1 07/27/2019 Active tabletIndications: mouth daily. Essential hypertension empagliflozin Take 1 tablet by 30 tablet 5 07/27/2019 Active (JARDIANCE) 10 mg mouth daily. TabIndications: Type 2 diabetes mellitus without complication, without long-term current use of insulin levocetirizine 5 mg Take 1 tablet by 30 tablet 5 07/27/2019 Active tabletIndications: mouth every Acute seasonal evening as allergic rhinitis needed for Allergies. fluticasone propionate Use 2 Sprays in 16 g 5 07/27/2019 Active 50 mcg/actuation nasal each nostril sprayIndications: once daily as Acute seasonal needed allergic rhinitis (allergies). montelukast 10 mg Take 1 tablet by 30 tablet 5 07/27/2019 Active tabletIndications: mouth every Acute seasonal evening as allergic rhinitis needed (allergies). doxycycline hyclate Take 1 tablet by 14 tablet 0 01/25/2020 Active 100 mg mouth 2 (two) tabletIndications: times daily for Acute frontal 7 days. sinusitis, recurrence not specified documented as of this encounter (statuses as of 01/25/2020) Active Problems Problem Noted Date Acute seasonal allergic rhinitis 07/27/2019 Abnormal liver function test 05/02/2019 Low serum HDL 05/02/2019 Type 2 diabetes mellitus without complications 020 Essential hypertension 04/27/2019 Morbid obesity 04/27/2019 Migraines Fatty liver documented as of this encounter (statuses as of 01/25/2020) Social History Tobacco Use Types Packs/Day Years Used Date Never Smoker Smokeless Tobacco: Never Used Alcohol Use Drinks/Week oz/Week Comments Yes 2 drinks per tue Sex Assigned at Date Recorded Not on file documented as of this encounter Last Filed Vital Signs Vital Sign Reading Time Taken Comments Blood Pressure 140/78 01/25/2020 5:25 PM CDT Pulse 67 01/25/2020 5:25 PM CDT Temperature 36.6 C (97.8 F) 01/25/2020 5:25 PM CDT Respiratory Rate 17 01/25/2020 5:25 PM CDT Oxygen Saturation 97% 01/25/2020 5:25 PM CDT Inhaled Oxygen Concentration - - Weight 113.4 kg (250 lb) 01/25/2020 5:25 PM CDT Height 154.9 cm (5' 1") 01/25/2020 5:25 PM CDT Body Mass Index 47.24 01/25/2020 5:25 PM CDT documented in this encounter Patient Instructions Patient InstructionsCristian Oakes PA-C - 01/25/2020 5:20 PM CDT Patient Education Causes of Sinusitis Mucus helps keep your sinuses clean. But mucus may build up in the sinuses because of colds, allergies, or blockages. These things get in the way of the natural drainage of mucus. This may lead to sinusitis. Sinusitis means sinus inflammation and infection. Acute sinusitis comes on suddenly. It often happens right after an upper respiratory infection, such as a cold. Viruses cause most acute sinus infections. Chronic sinusitis is ongoing swelling of the sinus lining. Doctors don't know what causes chronicsinusitis. Colds and other infections A cold or flu may cause your sinus and nasal linings to swell. Sinus openings can become blocked. This causes mucus to back up. This backed-up mucus becomes an ideal place for bacteria to grow. Thick, yellow, or discolored mucus is one sign of infection. Allergic reactions You may be sensitive to certain substances. This causes the release of histamine in the body. Histamine makes your sinus and nasal linings swell. Long-term swelling clogs your sinuses. It prevents the tiny hairs (cilia) in the nasal lining from sweeping away mucus. Allergy symptoms can continue over time. But theyre less severe than with colds. Blockages A polyp is a sac of swollen tissue. It can be the result of an allergy or infection. It may blockthe opening where most of your sinuses drain (middle meatus). It may even grow large enough to blockyour nose. A deviated septum is when the thin wall inside your nose is pushed to one side. It's often the result of injury. This can block your middle meatus. People with chronic nasal problems or allergies are more likely to get acute sinusitis. Sinusitis isalso more common if you have a weakened immune system, such as with HIV. You are also more likely toget sinusitis if you have cystic fibrosis or another condition that causes your body to make extra mucus. ipsy last reviewed this educational content on 10/23/201819998051-2465 The [employer]. [address] [place] [address]. All rights reserved. This information is not intended as a substitute for professional medical care. Always follow your healthcare professional's instructions. documented in this encounter Progress Notes Cristian Oakes PA-C - 01/25/2020 5:20 PM CDT Cc: cough congestion Chief Complaint Patient presents with Cough Congestion iKmmie Allen is a 44 year old female. Cough Cough characteristics: Productive Sputum characteristics: Brown and yellow Severity: Mild Onset quality: Gradual Duration: 8 days Timing: Intermittent Progression: Improving Chronicity: New Context: exposure to allergens, sick contacts and weather changes Relieved by: Nothing Worsened by: Nothing Ineffective treatments: None tried Associated symptoms: ear fullness, headaches, rhinorrhea, sinus congestion and sore throat Associated symptoms: no chills, no ear pain, no fever, no myalgias, no rash, no shortness of breath and no wheezing Allergies Kimmie is allergic to rocephin [ceftriaxone sodium]. Medications Outpatient Medications Prior to Visit Medication Sig Dispense Refill empagliflozin (JARDIANCE) 10 mg Tab Take 1 tablet by mouth daily. 30 tablet 5 fluticasone propionate 50 mcg/actuation nasal spray Use 2 Sprays in each nostril once daily as needed (allergies). 16 g 5 levocetirizine 5 mg tablet Take 1 tablet by mouth every evening as needed for Allergies. 30 tablet 5 lisinopril 10 mg tablet Take 1 tablet by mouth daily. 90 tablet 1 montelukast 10 mg tablet Take 1 tablet by mouth every evening as needed (allergies). 30 tablet 5 SUMAtriptan (IMITREX) 25 mg tablet Take 25 mg by mouth. 1 tablet po x 1 dose PRN migraine OLVERA, may repeat in 2 hours if needed VITAMIN C ORAL Take 1 tablet by mouth at bedtime. ZINC ORAL Take 1 tablet by mouth daily. cholecalciferol, vitamin D3, (VITAMIN D3) 1,000 unit tablet Take 1,000 Units by mouth daily. pantoprazole 40 mg EC tablet TK 1 T PO D 1 No facility-administered medications prior to visit. Histories Past Medical History: Diagnosis Date Abnormal liver function test 05/02/2019 Allergic rhinitis Essential hypertension 04/27/2019 Fatty liver Low serum HDL 05/02/2019 Migraines Type 2 diabetes mellitus without complications 04/27/2019 Past Surgical History: Procedure Laterality Date ESOPHAGOGASTRODUODENOSCOPY 05/01/2019 Social History Socioeconomic History Marital status: Spouse name: Not on file Number of children: Not on file Years of education: Not on file Highest education level: Not on file Occupational History Not on file Social Needs Financial resource strain: Not on file Food insecurity Worry: Not on file Inability: Not on file Transportation needs Medical: Not on file Non-medical: Not on file Tobacco Use Smoking status: Never Smoker Smokeless tobacco: Never Used Substance and Sexual Activity Alcohol use: Yes Comment: 2 drinks per month Drug use: Never Sexual activity: Not on file Lifestyle Physical activity Days per week: Not on file Minutes per session: Not on file Stress: Not on file Relationships Social connections Talks on phone: Not on file Gets together: Not on file Attends muslim service: Not on file Active member of club or organization: Not on file Attends meetings of clubs or organizations: Not on file Relationship status: Not on file Intimate partner violence Fear of current or ex partner: Not on file Emotionally abused: Not on file Physically abused: Not on file Forced sexual activity: Not on file Other Topics Concern Not on file Social History Narrative Not on file Family History Problem Relation Age of Onset Heart Brother Review of Systems Constitutional: Negative for activity change, appetite change, chills and fever. HENT: Positive for congestion, postnasal drip, rhinorrhea and sore throat. Negative for ear pain. Respiratory: Positive for cough. Negative for shortness of breath and wheezing. Gastrointestinal: Negative for abdominal pain, diarrhea, nausea and vomiting. Musculoskeletal: Negative for arthralgias and myalgias. Skin: Negative for rash. Neurological: Positive for headaches. Negative for dizziness. Vital Signs BP (!) 140/78 | Pulse 67 | Temp 36.6 C (97.8 F) | Resp 17 | Ht 5' 1" (1.549 m) | Wt 250 lb (113.4 kg) | LMP (Within Weeks) | SpO2 97% | BMI 47.24 kg/m Physical Exam Vitals signs and nursing note reviewed. Constitutional: Appearance: Normal appearance. HENT: Right Ear: Tympanic membrane and ear canal normal. Left Ear: Tympanic membrane and ear canal normal. Nose: Congestion and rhinorrhea present. Right Sinus: Frontal sinus tenderness present. Left Sinus: Frontal sinus tenderness present. Mouth/Throat: Mouth: Mucous membranes are moist. Pharynx: Oropharynx is clear. Eyes: Conjunctiva/sclera: Conjunctivae normal. Neck: Musculoskeletal: Normal range of motion and neck supple. Cardiovascular: Rate and Rhythm: Normal rate and regular rhythm. Pulmonary: Effort: Pulmonary effort is normal. Breath sounds: Normal breath sounds. Lymphadenopathy: Cervical: No cervical adenopathy. Neurological: Mental Status: She is alert. Assessment/Plan Acute sinusitis. Rx doxycycline 100 mg bid for 7d. Verbal and written home care and follow up instructions given to patient. Carolyn Muniz MA - 01/25/2020 5:20 PM CDT Kimmie Allen is a 44 year old female here for Chief Complaint Patient presents with Cough Congestion Duration of Symptoms: a week Any recent travel? 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 no Transplant patient or dialysis patient? no ? no All droplet and contact precautions taken with appropriate PPE worn while interacting with patient. - Goggles - Mask - Gloves - Gown - N95 Mask Patient gave verbal consent for specimen collection and testing for COVID-19, CDC information sheet provided to patient. Carolyn Lawrence MA 01/25/2020 5:28 PM documented in this encounter Plan of Treatment Name Type Priority Associated Diagnoses Order S chedule COVID-19 (PCR MOLECULAR LAB Routine Contact with or e xposure Expected: 01/25/2020, TESTING) to viral disease Expires: Health Maintenance Due Date Last Done Comments EYE EXAM 10/22/1983 FOOT EXAM 10/22/1991 DTaP,Tdap,and Td Vaccines (1 - 1992 Tdap) PAP SMEAR 1994 HgA1C 10/29/2019 04/30/2019 Breast Cancer Screening 12/15/2019 12/14/2018 (MAMMOGRAM) INFLUENZA VACCINE (#1) 2019 Depression Screening 04/27/2020 04/27/2019 CREATININE (SERUM) 04/30/2020 04/30/2019 LDL-C 04/30/2020 04/30/2019 URINE MICROALBUMIN 04/30/2020 04/30/2019 Colorectal Cancer Screening 10/22/2023 PNEUMOCOCCAL 0-64 YEARS COMBINED Aged Out No longer eligible based on SERIES patient's age to complete this topic documented as of this encounter Results Not on filedocumented in this encounter Visit Diagnoses Diagnosis Acute frontal sinusitis, recurrence not specified - Primary Contact with or exposure to viral diseas e Contact with or exposure to other viral diseases documented in this encounter Additional Health Concerns Infection Onset Date Last Indicated Resolved Time COVID-19 Rule Out 01/25/2020 01/25/2020 documented as of this encounter Insurance Payer Benefit Plan Subscriber ID Effective Dates Phone Address Type / Group [facility] [id number]-Ryan [phone] [address] P[place] t [id number] [place] [address] [phone] [id number] (Work) documented as of this encounter
--- OUTSIDE RECORDS SUMMARY | 2020-03-04 10:02 | XMS REPORT | Continuity of Care Document ---
:[address] [facility] t Address [address] [place] [address] Care Team Providers Name Role Phone Aden Maya MD Attending Clinician Provider, Urgent Care Attending Clinician Unavailable Doctor Unassigned, Name Attending Clinician Unavailable Sully SANTILLAN, M Attending Clinician Manny SANTILLAN, E Attending Clinician Problems Condition Condition Condition Status Onset Resolution Last Treating Co mments Source Name Details Category Date Date Treatment Clinician Date Elevated Elevated Problem [facility] - pressure pressure Memori a reading reading l without without Outpati diagnosis diagnosis ent of of Clinics hypertensi hypertensi on on Obesity, Obesity, Problem Active [facility] morbid, morbid, [facility] - BMI BMI Memoria 40.0-49.9 40.0-49.9 l Outpati ent Clinics Migraine, Migraine, Problem Active [facility] unspecifie unspecifie Rosemarie kes - d, not d, not Memoria intractabl intractabl l e, with e, with Outpati status status ent migrainosu migrainosu Cl inics s s Well woman Well woman Problem Active [facility] exam with exam with Luke s - routine routine Memoria gynecologi gynecologi l derek exam derek exam Outpat i ent Clinics Encounter Encounter Problem Active [facility] for for [facility] - screening screening [place] rd mammogram mammogram l for breast for breast Ou tpati cancer cancer ent Clinics Pelvic Pelvic Problem Active [facility] pain pain [facility] Prediabete Prediabete Problem Active [facility] s s [facility] Allergic Allergic Problem Active [facility] rhinitis rhinitis [facility] Increased Increased Problem Active [facility] urinary urinary Lukes - frequency frequency [place] rd l [facility]ics Fatigue Fatigue Problem Active [facility] Vitamin D Vitamin D Problem Active [facility] deficiency deficiency Rosemarie kes - Memoria l [facility]ics Upper Upper Problem Active [facility] respirator respirator Rosemarie kes - y tract y tract Memoria infection, infection, l unspecifie unspecifie Ou tpati d type d type ent Clinics Cough Cough Problem Active [facility] Seasonal Seasonal Problem Active [facility] allergic allergic [facility]ukes - rhinitis, rhinitis, [place] rd unspecifie unspecifie l d trigger d trigger Outp ati ent Clinics Alkaline Alkaline Problem Active [facility] phosphatas phosphatas Rosemarie kes - e e Memoria elevation elevation l [facility]ics Abscess Abscess Problem Active [facility] Constipati Constipati Problem Active [facility] on, on, Lukes - unspecifie unspecifie Me moria d d l constipati constipati Ou tpati on type on type ent Clinics Gastroesop Gastroesop Problem Active [facility] hageal hageal [facility]ukes - reflux reflux Memoria disease disease l with with [facility] esophagiti esophagiti en t s s Clinics Menorrhagi Menorrhagi Problem Active [facility] a with a with [facility]ukes - irregular irregular [place] [address] cycle cycle l [facility]ics Daytime Daytime Problem Active [facility] somnolence somnolence Rosemarie kes - Memoria l [facility]ics Chronic Chronic Problem Active [facility] fatigue fatigue [facility] Abnormal Abnormal Problem Active [facility] uterine uterine [facility] - bleeding bleeding Memori a (AUB) (AUB) l [facility] Clinics Controlled Controlled Problem Active [facility] type 2 type 2 [facility]ukes - diabetes diabetes Memori a mellitus mellitus l without without [facility] complicati complicati en t on, on, Clinics without without long-term long-term current current use of use of insulin insulin Abnormal Abnormal Problem Active [facility] mammogram mammogram Luke s - Memoria l [facility] Tension Tension Problem Active [facility] headache headache [facility] Frequent Frequent Diagnosis Active [facility] headaches headaches Luke s - Memoria l [facility] Allergies, Adverse Reactions, Alerts Allergy Allergy Status Severity Reaction(s) Onset Inactive Treating Comm ents Source Name Type Date Date Clinician Rocephin Adverse Active Info Not [facility] Reaction Available [facility] - [facility] Medications Ordered Filled Start Stop Current Ordering Indication Dosage Frequency Signature Comments Components Source Medication Medication Date Date Medication? Clinician (SIG) Name Name Methocarbam Methocarbam 2018-04 2019- No Tamra [address] [facility] ol ol 11 Pineda [facility] - 00:00: 00:00 Memoria 00 :00 [facility] Contour Contour Yes Tamra as [facility] Next Test Next Test 11-17 Pineda directed [facility] - 00:00: Memoria 00 [facility] Metformin Metformin Yes Tamra [address] [facility] HCl HCl 11-07 Pined[place] with a [facility]ukes - 00:00: meal Memoria 00 [facility] Ergocalcife Ergocalcife 2019- No Tamra [address] [facility] rol rol 11-07 Pineda [facility] - 00:00: 00:00 Memoria 00 :00 [facility] Lisinopril Lisinopril Yes Tamra [address] [facility] Pined[place] ONCE A DAY [facility] - ORALLY Memoria l [facility] Omeprazole Omeprazole Yes Tamra [address] [place] DAILY [facility] - ORALLY [facility] l [facility] Potassium Potassium Yes Tamra [address] [facility] [address] Chloride Chloride Pineda with food L ukes - Memoria l [facility] Clinics Tradjenta Tradjenta Yes Tamra [address] [facility]ics Bactrim DS Bactrim DS Yes Tamra [address] [facility] - [facility] Omeprazole Omeprazole Yes Tamra [address] [facility] - [facility] Pantoprazol Pantoprazol Yes Tamra not [facility] e Sodium e Sodium Pineda defined Leticia es - Memoria l [facility] Clinics Imitrex Imitrex Yes Tamra [address] [facility] Pined[facility] as needed [facility] - [facility] l Outpati ent Clinics Cheratussin Cheratussin Yes Tamra [address] AC AC [facility] [facility] - [facility] l Outpati ent Clinics Procedures This patient has no known procedures. Encounters Start End Encounter Admission Attending Care Care Encounter Source Date/Time Date/Time Type Type Clinicians Facility Department ID 2020-02-28 2020-02-28 Telephone Francesco [facility] [id number] 00:00:00 00:00:00 [facility] [id number] [place] [id number] Professio [phone] [place] [address] [address] 2020-02-18 2020-02-18 [facility] [id number] 00:00:00 00:00:00 [facility] [id number] [place] [id number] Professio [phone] [place] [address] [address] 2020-01-25 2020-01-25 Urgent Provider, [facility] [id number] 17:21:13 17:45:11 Care [facility] [id number] Care [place] [id number] Professio [phone] [place] [address] [address] 2019-11-30 2019-11-30 Telephone Francesco [facility] [id number] 00:00:00 00:00:00 [facility] A [place] [id number] [place] [id number] Professio [phone] [address] 2019-11-29 2019-11-29 Orders Doctor BOOGIE [id number] 00:00:00 00:00:00 Only Unassigned, SHARMILA [id number] Happy [facility] [id number] 2019-07-27 2019-07-27 [facility]medici [facility] [id number] 07:20:05 08:59:43 ne Visit Wondiful A [place] [id number] [place] [id number] Professio [phone] [address] 2019-06-13 2019-06-13 Telephone [facility] [id number] 00:00:00 00:00:00 [facility] [id number] [place] [id number] Professio [phone] [place] [address] [address] [facility] 2019-06-13 2019-06-13 Orders Doctor BOOGIE 1.2.840.114 [id number] 00:00:00 00:00:00 Only Unassigned, SHARMILA [id number]68 [id number] [id number] 2019-06-05 2019-06-05 [facility] [id number] 08:45:00 23:59:00 Encounter Antoniair Sandra [place] [id number] [place] [id number] [place] [id number] 2019-05-10 2019-05-10 Telephone [facility] [id number] 00:00:00 00:00:00 [facility] [id number] [place] [id number] Professio [phone] [place] [address] Office [facility] 2019-05-09 2019-05-09 [facility] 1.2.840.114 [id number] 08:00:00 23:59:00 Encounter Antoni Flores [place] [id number] [place] [id number] [place] [id number] 806 2019-05-09 2019-05-09 Orders Doctor BOOGIE 1.2.840.114 [id number] 00:00:00 00:00:00 Only Unassigned, SHARMILA [id number]686 [id number] [id number] 2019-04-27 2019-04-27 Orders Doctor BOOGIE [id number] 00:00:00 00:00:00 Only Unassigned, SHARMILA [id number] Happy [place] [id number] [id number] 2019-02-22 2019-02-22 [facility] [id number] 08:00:00 08:00:00 t [facility] 2018-12-01 2018-12-01 [facility] [id number] 16:14:00 16:14:00 t [facility] 2018-11-24 2018-11-24 Urgent Manny, [facility] [id number] 18:34:28 18:49:28 Care [facility] [id number] Surgical [id number] Special [phone] [address] [place] 2018-11-24 2018-11-24 Orders Doctor BOOGIE 1.2.840.114 [id number] 00:00:00 00:00:00 Only Unassigned, SHARMILA [id number] Happy [facility] [id number] [id number] [id number] 2018-11-17 2018-11-17 [facility] [id number] 09:11:00 09:11:00 Post-i [facility] ent [facility] 2018-11-07 2018-11-07 [facility] [id number] 15:20:00 15:20:00 t [facility] 2018-10-05 2018-10-05 [facility] [id number] 15:00:00 15:00:00 t [facility] ent Clinics 2018-09-25 2018-09-25 [facility] [id number] 15:00:00 15:00:00 t [facility] 2018-07-05 2018-07-05 [facility] [id number] 08:15:00 08:15:00 t [place] [employer] - [facility] Outpat[facility] ent Clinics 2018-06-28 2018-06-28 Orders Doctor BOOGIE [id number] 00:00:00 00:00:00 Only Unassigned, SHARMILA [id number] Happy [facility] [id number] [id number] 2018-06-22 2018-06-22 [facility] [id number] 08:30:00 08:30:00 t [place] [employer] [facility] - [facility] Outpati ent Clinics 2018-04-27 2018-04-27 Orders Doctor BOOGIE 1.2.840.114 [id number] 00:00:00 00:00:00 Only Unassigned, SHARMILA [id number] Happy [facility] [id number] [id number] [id number] 2017-12-23 2017-12-23 [facility] [id number] 10:00:00 10:00:00 t [place] [facility] Outpati ent Clinics 2017-11-22 2017-11-22 [facility] [id number] 11:00:00 11:00:00 t [place] [employer] [facility] Outpati ent Clinics 2017-10-11 2017-10-11 [facility] [id number] 10:00:00 10:00:00 t [place] [employer] [facility] Outpati ent Clinics 2017-08-30 2017-08-30 [facility] [id number] 10:45:00 10:45:00 t [facility] Out[facility] ent Clinics 2017-08-30 2017-08-30 [facility] [id number] 08:15:00 08:15:00 t [place] [employer] [facility] [address] [facility] Outpati ent Clinics Results This patient has no known results.
--- OUTSIDE RECORDS SUMMARY | 2020-03-04 10:02 | XMS REPORT | Summary of Care ---
:1975 Author Organization [facility] Address [address] [place] [address] Care Team Providers Name Role Phone Vidal Maya MD Primary Care Provider Reason for Visit Reason Comments Refill Request Encounter Details Date Type Department Care Team Description 02/18/2020 Refill [facility] Family Medicine Vidal Quiroz MD Refill Request - [address] [place] [address] [place] [address] [place] [address] [phone] Allergies Active Allergy Reactions Severity Noted Date Comments Ceftriaxone Sodium Unknown - See comments 05/12/2017 fainting documented as of this encounter (statuses as of 02/18/2020) Medications Medication Sig Dispensed Refills Start Date End Date Status pantoprazole 40 mg TK 1 T PO D 1 09/21/2018 Active EC tablet cholecalciferol, Take 1,000 0 Ac tive vitamin D3, Units by (VITAMIN D3) 1,000 mouth daily. unit tablet VITAMIN C ORAL Take 1 tablet 0 A ctive by mouth at bedtime. ZINC ORAL Take 1 tablet 0 Active by mouth daily. SUMAtriptan Take 25 mg by 0 Acti ve (IMITREX) 25 mg mouth. 1 tablet tablet po x 1 dose PRN migraine OLVERA, may repeat in 2 hours if needed lisinopril 10 mg Take 1 tablet 90 tablet 1 07/27/2019 Active tabletIndications: by mouth Essential daily. hypertension empagliflozin Take 1 tablet 30 tablet 5 07/27/2019 A ctive (JARDIANCE) 10 mg by mouth TabIndications: daily. Type 2 diabetes mellitus without complication, without long-term current use of insulin levocetirizine 5 mg Take 1 tablet 30 tablet 5 07/27/2019 Active tabletIndications: by mouth Acute seasonal every evening allergic rhinitis as needed for Allergies. fluticasone Use 2 Sprays 16 g 5 07/27/2019 Acti ve propionate 50 in each mcg/actuation nasal nostril once sprayIndications: daily as Acute seasonal needed allergic rhinitis (allergies). montelukast 10 mg Take 1 tablet 30 tablet 0 02/18/2020 Active tabletIndications: by mouth Acute seasonal every evening allergic rhinitis as needed (allergies). montelukast 10 mg Take 1 tablet 30 tablet 5 07/27/2019 02 Discontinued tabletIndications: by mouth 0 ( Reorder) Acute seasonal every evening allergic rhinitis as needed (allergies). documented as of this encounter (statuses as of 02/18/2020) Active Problems Problem Noted Date Acute seasonal allergic rhinitis 07/27/2019 Abnormal liver function test 05/02/2019 Low serum HDL 05/02/2019 Type 2 diabetes mellitus without complications 020 Essential hypertension 04/27/2019 Morbid obesity 04/27/2019 Migraines Fatty liver documented as of this encounter (statuses as of 02/18/2020) Social History Tobacco Use Types Packs/Day Years Used Date Never Smoker Smokeless Tobacco: Never Used Alcohol Use Drinks/Week oz/Week Comments Yes 2 drinks per tue Sex Assigned at Date Recorded Not on file documented as of this encounter Last Filed Vital Signs Not on filedocumented in this encounter Plan of Treatment Health Maintenance Due Date Last Done Comments [...] in this encounter Visit Diagnoses Diagnosis Acute seasonal allergic rhinitis documented in this encounter Insurance Payer Benefit Plan Subscriber ID Effective Dates Phone Address Type / Group BCBS OF [facility] [id number] 2015-Ryan [phone] [address] PPO/[place] t 7 [id number] [place] [address] documented as of this encounter
--- OUTSIDE RECORDS SUMMARY | 2020-03-04 10:03 | XMS REPORT | Summary of Care ---
:1975 Author Organization [facility] Address [address] [place] [address] Care Team Providers Name Role Phone Vidal Maya MD Primary Care Provider Reason for Visit Reason Comments Assessment Encounter Details Date Type Department Care Team Description 02/28/[address] [facility] Family Medicine Vidal Quiroz MD Assessment - [address] [place] [address] [place] [address] [place] [address] [phone] Allergies Active Allergy Reactions Severity Noted Date Comments Ceftriaxone Sodium Unknown - See comments 05/12/2017 fainting documented as of this encounter (statuses as of 02/29/2020) Medications Medication Sig Dispensed Refills Start Date [...] 07/27/2019 Active tabletIndications: mouth every Acute seasonal allergic evening as needed rhinitis for Allergies. fluticasone propionate Use 2 Sprays in 16 g 5 07/27/2019 Active 50 mcg/actuation nasal each nostril once sprayIndications: Acute daily as needed seasonal allergic (allergies). rhinitis montelukast 10 mg Take 1 tablet by 30 tablet 0 02/18/2020 Active tabletIndications: mouth every Acute seasonal allergic evening as needed rhinitis (allergies). documented as of this encounter (statuses as of 02/29/2020) Active Problems Problem Noted Date Acute seasonal allergic rhinitis 07/27/2019 Abnormal liver function test 05/02/2019 Low serum HDL 05/02/2019 Type 2 diabetes mellitus without complications 020 Essential hypertension 04/27/2019 Morbid obesity 04/27/2019 Migraines Fatty liver documented as of this encounter (statuses as of 02/29/2020) Social History Tobacco Use Types Packs/Day Years Used Date Never Smoker Smokeless Tobacco: Never Used Alcohol Use Drinks/Week oz/Week Comments Yes 2 drinks per tue Sex Assigned at Date Recorded Not on file documented as of this encounter Last Filed Vital Signs Not on filedocumented in this encounter Miscellaneous Notes Telephone Encounter - Zaida Ma - 02/28/2020 1:42 PM [facility] sent test result placed in nurse box documented in this encounter Plan of Treatment Health [...] Results Not on filedocumented in this encounter Insurance Payer Benefit Plan Subscriber ID Effective Dates Phone Address Type / Group BCBS OF [employer] [place] [id number] 2015-Ryan [phone] [address] P[place] t [id number] [place] [address] documented as of this encounter
[2020-03-04] MEDS ORDERED: Ringers Lactate 1,000 ML IV ONE ×3 (10:22→19:55)
[2020-03-04] MEDS ORDERED: SCOPOLAMINE HYDROBROMIDE PATCH TD ONE (10:37)
[2020-03-04] MEDS ORDERED: NA CHLORIDE 0.9% 1,000 ML ONE (10:48)
[2020-03-04] MEDS: Levofloxacin500mg IV 500 MG/100 ML BAG IV ONE ×3 (11:33→14:51)
[2020-03-04] MEDS: BUPIVACAINE 0.25% PF 30 ML VIAL ONE ×2 (14:16→14:56)
[2020-03-04] MEDS ORDERED: propofoL 200 MG/20 ML VIAL IV ONE (14:20)
[2020-03-04] MEDS ORDERED: FENTANYL CITR 250 MCG/5 ML ONE (14:20)
[2020-03-04] MEDS ORDERED: LIDOCAINE 2% MPF 5 ML VIAL ONE (14:20)
[2020-03-04] MEDS ORDERED: MIDAZOLAM HCL 2 MG/2 ML INJ ONE (14:20)
[2020-03-04] MEDS ORDERED: ROCURONIUM 50 MG/5 ML VIAL IV ONE (14:20)
[2020-03-04] MEDS ORDERED: dexAMETHasone 4 MG/ML VIAL ONE (14:23)
[2020-03-04] MEDS ORDERED: ONDANSETRON 4 MG/2 ML VIAL ONE (14:23)
[2020-03-04] MEDS: Ringers Lactate 1,000 ML IV ONE ×2 (15:23→15:28)
[2020-03-04] MEDS ORDERED: VECURONIUM 10 MG/VIAL IV ONE (15:48)
[2020-03-04] MEDS ORDERED: KETOROLAC 30 MG/ML INJ ONE (16:29)
[2020-03-04] MEDS ORDERED: GLYCOPYRROLATE 0.2 MG/ML SYR ONE ×2 (16:50→16:51)
[2020-03-04] MEDS ORDERED: NEOSTIGMINE 1 MG/ML -5 ML ONE (16:50)
[2020-03-04] MEDS ORDERED: MORPHINE 10 MG/ML VIAL ONE (17:04)
[2020-03-04] MEDS ORDERED: HYDROCODONE/APAP 5/325 MG TAB ONE (19:25)
[2020-03-04 20:18] VITALS: BP 120/67; TEMP 97.7; O2SAT 97
--- NOTE | 2020-03-06 08:28 | OP ---
Date of Procedure: 03/04/2020 Surgeon: Corinne Greer MD Employment Director: Lorraine Haney. Preoperative Diagnoses: Menorrhagia, dysmenorrhea, and right ovarian cyst. Postoperative Diagnoses: Menorrhagia, dysmenorrhea, right ovarian, and endometriosis. Procedures Performed: Total laparoscopic hysterectomy, bilateral salpingectomy, endometriosis excisi on. Anesthesia: General endotracheal. Estimated Blood Loss: . Urine Output: 150. Complications: No complications. Specimens: Uterus, bilateral tubes, endometriosis in the posterior wall as well as in the the left tube and the left round ligament. Findings: Both ovaries normal appearing. Description Of Procedure: After informed consent was verified, the patient was taken back to OR, [facility] in a supine fashion on the operating table. General anesthesia was given. She was placed in lillie flori lithotomy position. Pelvic exam was performed. Uterus was found to be anteflexed. A 2 g of Anc ef were given. SCDs were placed. Abdomen, vulva, vagina, and perineum prepped and draped in a steri le fashion. Gaytan placed to drain the bladder and attached for retrograde filling. A large VCare in troduced into the uterus and fixed in place. This area was then draped. A 1 cm infraumbilical incis ion made with a scalpel, fascia incised, tagged with 0 Vicryl sutures. Peritoneum entered bluntly. S retractors were placed. Rudolph introduced. Site of entry was checked, unremarkable. Ten suprapub ic and 5 left lower quadrant ports were placed under direct vision. A 5 mm LigaSure was used to take down the left tube and handed over for permanent pathology. Then, dissection of the endometriosis a t the proximal part of the tube where the uterus was taken down. The utero-ovarian ligament with a p ossible endo was also attached to was taken down. Round ligament taken down, anterior peritoneum vicente sed to raise the bladder flap all the way to the opposite side. Then posteriorly, peritoneum taken d own to the uterosacral ligament and broad ligament taken down to skeletonize the vessels. Vessels ta makayla down, cauterized, not cut, then on the opposite side. The right tube was dissected, utero-ovaria n ligament taken down, round ligament was taken down. Then posteriorly, posterior leaf was taken nakia n to the right uterosacral. The peritoneal dissection was performed, so the endometriosis stayed on the posterior aspect of the uterus. While doing this on the left side, the anterior leaf of the blad kali and peritoneum connected. Broad ligament taken down and the vessels were skeletonized. Monopola r hook blade was used to create an opening of the vesicovaginal space and the bladder was dissected i nferiorly. The bladder appeared to be densely adhered at a certain point likely from her once ____ and after this was taken down, there was clear mobility of the bladder. The vessels were taken down first on the right side. Uterine vessels were taken down . Th en, the descending branches were taken and cardinal ligaments were taken down. On the opposite side, similar dissection was performed and all these were taken down. Then, circumferential colpotomy wit h a monopolar hook blade was performed and the specimen was detached and handed out for permanent pat hology. It was difficult to remove the uterus just with the vaginal sponge forceps, so I went down b lexus morcellated the uterus partially, then once this was flipped out due to the fibroid uterus it wa s easily retrieved. Then, vaginal occlusion sponge was placed. Gloves were changed. Thorough irrigation suction was performed. Hemostasis that had to be secured at the level of the vag inal cuff. Once this was done with the help of the bipolar medium tip as well as the LigaSure. Then , closure was performed with 2-0 PDS x2 at each angle, simple stitches and 5 [id number] in the center. Closed the entire cuff carefully, then made sure that the distal uterosacrals were reattache d to the apex and both anterior-posterior connective tissue, all tissues were attached together. After thorough irrigation, suction was performed, and both ovaries were intact. No evidence of any e lectrical, mechanical, or thermal injury to the ureters. The scope was removed. Gas was desufflated . Trocars removed under direct vision. Injected with 0.25% Marcaine both at the entry and exit of b [facility] skin fascial incisions. Fascial incision at the umbilicus was closed with the help of the 0 Vicr yl stitch and then a 3-0 chromic was placed to reattached the umbilicus that was detached from the fa scia. Then, the fascia at the umbilicus closed with simple 0 Vicryl stitch and all incisions on the skin closed with interrupted 4-0 Vicryl. Gaytan was removed. Vaginal sponge was removed. Instrument , needle, and sponge counts were correct. The patient was recovered from anesthesia and taken to PAC U in stable condition. CAPRICE/TASHA Voice ID: [id number] Report ID: [id number]
== END 2020-03-04 22:14 | disposition home or self-care (01) ==
LOC: OR 09:56
PROVIDERS: ATTEND Obstetrics & Gynecology
PROC: 0UT74ZZ Resection of Bilateral Fallopian Tubes, Percutaneous Endoscopic Approach (ICD-10-PCS; 2020-03-04)
PROC: 0UB44ZZ Excision of Uterine Supporting Structure, Percutaneous Endoscopic Approach (ICD-10-PCS; 2020-03-04)
PROC: 0UT94ZZ Resection of Uterus, Percutaneous Endoscopic Approach (ICD-10-PCS; principal; 2020-03-04 11:00)
DX: N92.0 Excessive and frequent menstruation with regular cycle (principal); N94.6 Dysmenorrhea, unspecified; N80.2 Endometriosis of fallopian tube; N80.3 Endometriosis of pelvic peritoneum; N84.1 Polyp of cervix uteri; D25.9 Leiomyoma of uterus, unspecified; Z20.828 Contact with and (suspected) exposure to other viral communicable diseases; E11.9 Type 2 diabetes mellitus without complications; I10 Essential (primary) hypertension; R10.2 Pelvic and perineal pain; Z79.84 Long term (current) use of oral hypoglycemic drugs
CPT/HCPCS: 85025; 36415; 86900; 86850; 81025; 86901; 82947 ×2; 88307; 81003; 58571; 58662; U0002; J2704; J1100; J2250; J3010; J2710; J7120 ×4; J7030; J2405

== ENCOUNTER 2020-07-17 16:45 | Emergency (ER) | payer BC ==
--- OUTSIDE RECORDS SUMMARY | 2020-07-17 16:48 | XMS REPORT | Continuity of Care Document ---
:1975 Author Organization [facility] t Address [address] [place] [address] Care Team Providers Name Role Phone Aden Maya MD Attending Clinician Shan Wilcox Attending Clinician Problems Condition Condition Condition Status [...] [facility] pain [facility] Prediabete Prediabete Problem Active [facility] HI [facility] s [facility] Allergic Allergic Problem Active [facility]initis [facility] Increased Increased Problem Active [facility] urinary urinary [facility] - frequency frequency [place] rd l [facility] Fatigue Fatigue Problem [facility] Vitamin D Vitamin D Problem Active [facility] deficiency deficiency Rosemarie kes - Memoria l [facility] Upper Upper Problem Active [facility] respirator respirator Rosemarie kes - y tract y tract Memoria infection, infection, l unspecifie unspecifie Ou tpati d type d type ent Clinics Cough Cough Problem [facility] Seasonal Seasonal Problem Active [facility] allergic allergic [facility] - rhinitis, rhinitis, Rustam rd unspecifie unspecifie l d trigger d trigger Outp ati ent Clinics Alkaline Alkaline Problem Active [facility] phosphatas phosphatas Rosemarie kes - e e Memoria elevation elevation l [facility]ics Abscess Abscess Problem Active [facility] Constipati Constipati Problem Active C HI [facility] on, on, [facility] - unspecifie unspecifie Me moria d d l constipati constipati Ou tpati on type on type ent Clinics Gastroesop Gastroesop Problem Active C HI [facility] hageal hageal [facility] - reflux reflux Memoria disease disease l with with [facility] esophagiti esophagiti en t s s Clinics Menorrhagi Menorrhagi Problem Active C HI [facility] a with a with [facility] - irregular irregular Rust[address] rd cycle cycle l [facility] Daytime Daytime Problem Active [facility] somnolence somnolence Rosemarie kes - Memoria l [facility] Chronic Chronic Problem Active [facility] fatigue fatigue [facility] Abnormal Abnormal Problem Active [facility] uterine uterine [facility] - bleeding bleeding Memori a (AUB) (AUB) l [facility] Controlled Controlled Problem Active C HI [facility] type 2 type 2 [facility] - diabetes diabetes Memori a mellitus mellitus l without without [facility] complicati complicati en t on, on, Clinics without without long-term long-term current current use of use of insulin insulin Abnormal Abnormal Problem Active [facility] mammogram mammogram Luke s - [facility] Tension Tension Problem Active [facility] headache headache [facility] Frequent Frequent Diagnosis Active [facility] headaches headaches Luke s [facility] Allergies, Adverse Reactions, Alerts Allergy Allergy Status Severity Reaction(s) Onset Inactive Treating Comm ents Source Name Type Date Date Clinician Rocephin Adverse Active Info Not [facility] Reaction Available [facility] Medications Ordered Filled Start Stop Current Ordering Indication Dosage Frequency Signature Comments Components Source Medication Medication Date Date Medication? Clinician (SIG) Name Name Methocarbam Methocarbam 2018-04 2019- No Tamra [address] [facility] [address] ol ol 03-01 Pineda [facility] - 00:00: 00:00 Memoria 00 :00 [facility] Contour Contour Yes Tamra as [facility] Next Test Next Test 11-17 Pineda directed [facility] - 00:00: Memoria 00 [facility] Metformin Metformin Yes Tamra [address] [facility] [address] HCl HCl 11-07 Pineda with a [facility] - 00:00: meal Memoria 00 [facility] ent Clinics Ergocalcife Ergocalcife 2019- No Tamra [address] rol rol 11-07 Pineda [facility] - 00:00: 00:00 Memoria 00 :00 [facility] ent Clinics Lisinopril Lisinopril Yes Tamra [address] [facility] Pineda ONCE A DAY [facility] Omeprazole Omeprazole Yes Tamra [address] [facility]ined[facility] DAILY [facility] Potassium Potassium Yes Tamra [address] Chloride Chloride Pineda with food [facility] Tradjenta Tradjenta Yes Tamra [address] [facility] Bactrim DS Bactrim DS Yes Tamra [address] [facility] Omeprazole Omeprazole Yes Tamra [address] [facility]ined[facility] Pantoprazol Pantoprazol Yes Tamra not [facility] e Sodium e Sodium Pineda defined Leticia es - [facility]oria [facility]ics Imitrex Imitrex Yes Tamra [address] [facility] Pineda as needed [facility] Cheratussin Cheratussin Yes Tamra [address] [facility] Procedures This patient has no known procedures. Encounters Start End Encounter Admission Attending Care Care Encounter Source Date/Time Date/Time Type Type Clinicians Facility Department ID 2020-07-17 2020-07-17 Telephone Francesco [facility] [id number] 00:00:00 00:00:00 [employer] [id number] [place] [id number] Professio [id number] nal [address] 2020-07-14 2020-07-14 [facility] [id number] 00:00:00 00:00:00 Doris [employer] [facility] [id number] [place] [id number] Professio [id number] nal [address] 2019-02-22 2019-02-22 [facility] [id number] 08:00:00 08:00:00 [facility] ent Clinics 2018-12-01 2018-12-01 [facility] [id number] 16:14:00 16:14:00 [facility] 2018-11-17 2018-11-17 [facility] [id number] 09:11:00 09:11:00 [facility] [employer] [facility] 2018-11-07 2018-11-07 [facility] [id number] 15:20:00 15:20:00 [facility] [facility] 2018-10-05 2018-10-05 [facility] [id number] 15:00:00 15:00:00 [facility] Outpat[facility] ent Clinics 2018-09-25 2018-09-25 [facility] [id number] 15:00:00 15:00:00 [facility] [employer] [facility] Medicine Outpati ent Clinics 2018-07-05 2018-07-05 [facility] [id number] 08[facility]15:00 08:15:00 [place] [facility] [employer] [facility] Medicine Outpati ent Clinics 2018-06-22 2018-06-22 [facility] [id number] 08:30:00 08:30:00 [place] [facility] [employer] [facility] Medicine Outpati ent Clinics 2017-12-23 2017-12-23 [facility] [id number] 10:00:00 10:00:00 [place] [facility] - [employer] [facility] Medicine Outpati ent Clinics 2017-11-22 2017-11-22 [facility] [id number] 11:00:00 11:00:00 [place] [employer] [facility] Medicine Outpati ent Clinics 2017-10-11 2017-10-11 [facility] [id number] 10:00:00 10:00:00 t [place] [facility] [employer] [facility] Medicine Outpati ent Clinics 2017-08-30 2017-08-30 [facility] [id number] 10:45:00 10:45:00 [facility] [place] [facility] - [facility] l Outpati ent Clinics 2017-08-30 2017-08-30 [facility] [id number] 08:15:00 08:15:00 [place] [employer] [facility] Medicine Outpati ent Clinics Results This patient has no known results.
[2020-07-17] MEDS ORDERED: HYDROCODONE/CHLORPHEN 5 ML/OSYR ONE (19:34)
[2020-07-17] MEDS ORDERED: dexAMETHasone 10 MG/ML VIAL ONE (19:34)
--- NOTE | 2020-07-17 19:48 | RAD REPORT ---
EXAM DESCRIPTION: RAD - Chest Single View - 07/17/2020 6:29 pm CLINICAL HISTORY: DYSPNEA, COVID positive COMPARISON: May 2019 TECHNIQUE: AP portable chest image was obtained 07/17/2020 6:29 pm . FINDINGS: Lung volumes are low. Extensive bilateral airspace opacification is present. Heart size an d vasculature magnified by shallow inspiration portable exam. Trachea is midline. No measurable pleur al effusion and no pneumothorax. No acute bony abnormality seen. No acute aortic findings suspected. IMPRESSION: Moderate severity bilateral COVID-19 pneumonia.
--- NOTE | 2020-07-17 19:51 | EDPHYS ---
Physician Documentation [facility] Name: Kimmie Allen Age: 44 yrs Sex: Female : 1975 Arrival Date: 07/17/2020 Time: 16:46 Bed 16 Private MD: ED Physician Roger Shaw HPI: 07/17 19:58 This 44 yrs old Female presents to ER via Ambulatory with complaints of kb Shortness Of Breath, Covid+. 19:58 The patient has not recently seen a physician. kb 19:58 The patient or guardian reports cough, difficulty breathing, flu symptoms. Onset: The kb symptoms/episode began/occurred last week. Severity of symptoms: At their worst the symptoms were moderate, in the emergency department the symptoms are unchanged. Modifying factors: The symptoms are alleviated by nothing, the symptoms are aggravated by exertion. Associated signs and symptoms: Pertinent positives: fever. The patient has not experienced similar symptoms in the past. Pt reports she tested positive for covid last week. States her cough is getting worse and she is peeing on herself when she has a coughing fit. Reports fever, shortness of breath, cough, headache. 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 ROS: 19:56 Cardiovascular: Negative for chest pain, palpitations, and edema, Abdomen/GI: Negative kb for abdominal pain, nausea, vomiting, diarrhea, and constipation, MS/Extremity: Negative for injury and deformity, Skin: Negative for injury, rash, and discoloration. 19:56 Constitutional: Positive for body aches, chills, fatigue, fever, malaise. 19:56 Respiratory: Positive for cough, dyspnea on exertion, shortness of breath. 19:56 Neuro: Positive for headache. Exam: 19:56 Constitutional: This is a well developed, well nourished patient who is awake, alert, kb and in no acute distress. Head/Face: Normocephalic, atraumatic. Cardiovascular: Regular rate and rhythm with a normal S1 and S2. No gallops, murmurs, or rubs. No pulse deficits. Abdomen/GI: Soft, non-tender. No distention Skin: Warm, dry with normal turgor. Normal color. MS/ Extremity: Pulses equal, no cyanosis. Neurovascular intact. Full, normal range of motion. Neuro: Awake and alert, GCS 15, oriented to person, place, time, and situation. Moves all extremities. Normal gait. 19:56 Respiratory: the patient does not display signs of respiratory distress, Respirations: normal, Breath sounds: decreased breath sounds, that are mild, are located in both bases. Vital Signs: 17:19 BP 115 / 72; Pulse 96; Resp 18 S; Temp 98(TE); Pulse Ox 96% on R/A; Weight 110.22 kg ca1 (R); Height 5 ft. 1 in. (154.94 cm) (R); 19:15 BP 132 / 78; Pulse 96; Resp 16; Pulse Ox 92% on R/A; jb4 20:00 BP 116 / 69; Pulse 95; Resp 19; Pulse Ox 95% on R/A; jb4 17:19 Body Mass Index 45.91 (110.22 kg, 154.94 cm) ca1 MDM: 18:27 Patient medically screened. kb 19:50 Data reviewed: vital signs, nurses notes. Data interpreted: Pulse oximetry: on room air kb is 96 %. Interpretation: normal. Counseling: I had a detailed discussion with the patient and/or guardian regarding: the historical points, exam findings, and any diagnostic results supporting the discharge/admit diagnosis, radiology results, the need for outpatient follow up, a family practitioner, to return to the emergency department if symptoms worsen or persist or if there are any questions or concerns that arise at home. 07/17 17:57 Order name: Chest Single View XRAY; Complete Time: 19:50 kb Administered Medications: 19:20 Drug: Decadron 10 mg Route: IM; Site: left gluteus; jb4 20:20 Follow up: Response: No adverse reaction jb4 19:20 Drug: Tussionex Pennkinetic ER (chlorpheniramine-hydrocodone) 5 ml Route: PO; jb4 20:20 Follow up: Response: No adverse reaction jb4 Disposition: 07/18 07:26 Co-signature as Attending Physician, Roger Shaw MD I agree with the assessment and kdr plan of care. Disposition: 07/17/20 19:51 Discharged to Home. Impression: Coronavirus infection, unspecified, Viral pneumonia, unspecified. - Condition is Stable. - Discharge Instructions: Viral Respiratory Infection, [place], COVID-19. - Prescriptions for Prednisone 20 mg Oral Tablet - take 2 tablet by ORAL route once daily for 5 days; 10 tablet. Albuterol Sulfate 90 mcg/actuation - inhale 1-2 puff by INHALATION route every 4-6 hours; 1 Inhaler. Guaifenesin AC 10- 100 mg/5 mL Oral Liquid - take 10 milliliter by ORAL route every 4 hours As needed; 240 milliliter. - Medication Reconciliation Form, Thank You Letter, Antibiotic Education, Prescription Opioid Use form. - Follow up: Emergency Department; When: As needed; Reason: Worsening of condition. Follow up: Private Physician; When: 2 - 3 days; Reason: Recheck today's complaints, Continuance of care, Re-evaluation by your physician. Signatures: Dispatcher [employer] EDMS Damaris English, SKEIN YARN DYER-C SKEIN YARN DYER-CkRoger Mckeon MD MD [facility] Ephraim Mohamud, GILDA RN jb4 Joycelyn Bates RN RN ca1 Corrections: (The following items were deleted from the chart) 07/17 20:20 19:51 07/17/2020 19:51 Discharged to Home. Impression: Coronavirus infection, jb4 unspecified; Viral pneumonia, unspecified. Condition is Stable. Forms are Medication Reconciliation Form, Thank You Letter, Antibiotic Education, Prescription Opioid Use. Follow up: Emergency Department; When: As needed; Reason: Worsening of condition. Follow up: Private Physician; When: 2 - 3 days; Reason: Recheck today's complaints, Continuance of care, Re-evaluation by your physician. kb
--- NOTE | 2020-07-17 19:51 | ER ---
Nurse's Notes [facility] Name: Kimmie Allen Age: 44 yrs Sex: Female : 1975 Arrival Date: 07/17/2020 Time: 16:46 Bed 16 Private MD: Diagnosis: Coronavirus infection, unspecified;Viral pneumonia, unspecified Presentation: 07/17 17:19 Chief complaint: Patient states: Covid+ 07/08/2020, S/S 07/07/2020. Cough I can't get rid ca1 of. Been throwing up phlegm. Increasingly SOB. When I cough I accidentally urinate on myself. And still having fever for the last 4 days, on and off. Coronavirus screen: Client denies travel out of the [place] in the last 14 days. Client reports previous positive COVID test result. Date of collection: July 08, 2020. Ebola Screen: Patient negative for fever greater than or equal to 101.5 degrees Fahrenheit, and additional compatible Ebola Virus Disease symptoms Patient denies exposure to infectious person. Patient denies travel to an Ebola-affected area in the 21 days before illness onset. No symptoms or risks identified at this time. Initial Sepsis Screen: Does the patient meet any 2 criteria? No. Patient's initial sepsis screen is negative. Does the patient have a suspected source of infection? No. Patient's initial sepsis screen is negative. Risk Assessment: Do you want to hurt yourself or someone else? Patient reports no desire to harm self or others. Onset of symptoms was July 17, 2020. 17:19 Method Of Arrival: Ambulatory ca1 17:19 Acuity: JOSHUA 3 ca1 Triage Assessment: 18:54 Respiratory: Onset: The symptoms/episode began/occurred gradually, the patient has mild jd3 shortness of breath. 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 Screenin:54 Abuse screen: Denies threats or abuse. Nutritional screening: No deficits noted. jd3 Tuberculosis screening: No symptoms or risk factors identified. Fall Risk Ambulatory Aid- None/Bed Rest/Nurse Assist (0 pts). Gait- Normal/Bed Rest/Wheelchair (0 pts) Mental Status- Oriented to own ability (0 pts). Total Tran Fall Scale indicates No Risk (0-24 pts). Assessment: 18:52 General: Appears in no apparent distress. comfortable, Behavior is calm, cooperative, jd3 appropriate for age. Pain: Denies pain. Neuro: Level of Consciousness is awake, alert, obeys commands, Oriented to person, place, time, situation. Cardiovascular: Denies chest pain, Capillary refill < 3 seconds Patient's skin is warm and dry. Respiratory: Reports cough that is non-productive, dry, persistent pain with cough Airway is patent Respiratory effort is even, unlabored, Respiratory pattern is regular, symmetrical. GI: Reports vomiting. : No signs and/or symptoms were reported regarding the genitourinary system. EENT: No signs and/or symptoms were reported regarding the EENT system. Derm: Skin is intact, Skin is dry, Skin is normal, Skin temperature is warm. Musculoskeletal: Circulation, motion, and sensation intact. Range of motion: intact in all extremities. 19:00 Reassessment: Patient appears in no apparent distress at this time. Patient and/or jb4 family updated on plan of care and expected duration. Pain level reassessed. Patient is alert, oriented x 3, equal unlabored respirations, skin warm/dry/pink. 20:00 Reassessment: Patient appears in no apparent distress at this time. Patient and/or jb4 family updated on plan of care and expected duration. Pain level reassessed. Patient is alert, oriented x 3, equal unlabored respirations, skin warm/dry/pink. Vital Signs: 17:19 BP 115 / 72; Pulse 96; Resp 18 S; Temp 98(TE); Pulse Ox 96% on R/A; Weight 110.22 kg ca1 (R); Height 5 ft. 1 in. (154.94 cm) (R); 19:15 BP 132 / 78; Pulse 96; Resp 16; Pulse Ox 92% on R/A; jb4 20:00 BP 116 / 69; Pulse 95; Resp 19; Pulse Ox 95% on R/A; jb4 17:19 Body Mass Index 45.91 (110.22 kg, 154.94 cm) ca1 ED Course: 16:46 Patient arrived in ED. am2 17:22 Triage completed. ca1 17:24 Arm band placed on right wrist. ca1 17:57 Damairs English FNP-C is [facility]. kb 17:57 Roger Shaw MD is Attending Physician. kb 18:29 Chest Single View XRAY In Process Unspecified. EDMS 18:53 Patient has correct armband on for positive identification. Bed in low position. Call jd3 light in reach. Side rails up X 1. Pulse ox on. NIBP on. 19:06 Ephraim Mohamud, RN is Primary Nurse. jb4 20:20 No provider procedures requiring assistance completed. Patient did not have IV access jb4 during this emergency room visit. Administered Medications: 19:20 Drug: Decadron 10 mg Route: IM; Site: left gluteus; jb4 20:20 Follow up: Response: No adverse reaction jb4 19:20 Drug: Tussionex Pennkinetic ER (chlorpheniramine-hydrocodone) 5 ml Route: PO; jb4 20:20 Follow up: Response: No adverse reaction jb4 Outcome: 19:51 Discharge ordered by . kb 20:20 Discharged to home ambulatory. jb4 20:20 Condition: stable 20:20 Discharge instructions given to patient, Instructed on discharge instructions, follow up and referral plans. medication usage, Demonstrated understanding of instructions, follow-up care, medications, Prescriptions given X 3. 20:20 Patient left the ED. jb4 Signatures: Dispatcher [employer] EDOH Damaris English FNP-C CUT OFF OPERATOR SCORER-Ck Ephraim Mohamud, RN RN jb4 Carolyn Briceno am2 Sourav Bustamante RN RN jd3 Joycelyn Bates RN RN ca1
[2020-07-17 22:02] VITALS: TEMP 98
[2020-07-17 22:07] VITALS: BP 116/69; O2SAT 95
== END 2020-07-17 20:20 | disposition home or self-care (01) ==
LOC: ER 16:45
DX: U07.1 COVID-19 (principal); J12.82 Pneumonia due to coronavirus disease 2019; I10 Essential (primary) hypertension; Z88.3 Allergy status to other anti-infective agents
CPT/HCPCS: 71045; 96372; 99284; J1100